=== PATIENT | female | born 1975 | race Caucasian/White ===

== ENCOUNTER 2020-06-23 14:33 | Emergency (ER) | payer OTHER, SELFPAY ==
[2020-06-23 14:42] VITALS: BP 132/83; PULSE 90; RESP 16; TEMP 37.6; O2SAT 98
--- NOTE | 2020-06-23 14:50 | ED.DENTAL ---
HPI - Dental/Oral General Chief complaint: Dental/Oral Stated complaint: Dental Time Seen by Provider: 06/23/20 14:50 Source: patient and RN notes reviewed History of Present Illness HPI Narrative: Patient is a 44-year-old female who presents the urgent care with complaints of right lower dental pain. Patient states is been ongoing for at least 1 month or longer and she has not been able to get into a dentist due to insurance purposes. Patient states she does have an appointment at the dental school in August but cannot last that long . Patient states that she has been using [id number] lidocaine to the gums as well as using Tylenol/ibuprofen. Patient states that she popped a bubble on the gumline and noticed some clear drainage. Patient denies of any fever, chills, nausea, vomiting. No facial swelling noted. No other acute complaints. No acute distress noted. Patient read the plan of care. Related Data Home Medications Medication Instructions Recorded Confirmed albuterol sulfate [ProAir HFA] 1 inh INHALATION QID 06/23/20 06/23/20 buspirone 10 mg PO TID 06/23/20 06/23/20 levetiracetam 500 mg PO BID 06/23/20 06/23/20 naltrexone 50 mg PO TID 06/23/20 06/23/20 pantoprazole 40 mg PO QAM 06/23/20 06/23/20 sertraline 100 mg PO DAILY 06/23/20 06/23/20 topiramate 50 mg PO BID 06/23/20 06/23/20 verapamil 40 mg PO DAILY 06/23/20 06/23/20 Allergies Allergy/AdvReac Type Severity Reaction Status Date / Time acetaminophen Allergy Unknown unknown Verified 06/23/20 14:53 erythromycin base Allergy Unknown unknown Verified 06/23/20 14:53 hydrocodone Allergy Unknown unknown Verified 06/23/20 14:53 Penicillins Allergy Unknown unknown Verified 06/23/20 14:53 prochlorperazine Allergy Unknown unknown Verified 06/23/20 14:53 propoxyphene Allergy Unknown unknown Verified 06/23/20 14:53 Review of Systems Review of Systems: Narrative: CONSTITUTIONAL: Denies fever, chills, or sweats. EYES: Denies visual changes, redness, or discharge. ENT: Denies rhinorrhea, congestion, sore throat, or otalgia. Reports of lower left dental pain CARDIOVASCULAR: Denies chest pain, palpitations, or edema. RESPIRATORY: Denies cough or dyspnea. GASTROINTESTINAL: Denies abdominal pain, nausea, vomiting, or diarrhea. GENITOURINARY: Denies dysuria or hematuria. SKIN: Denies rash or itching. MUSCULOSKELETAL: Denies back pain, joint pain, or myalgia. NEUROLOGIC: Denies headache, numbness, or weakness. All other systems reviewed are negative, except as documented in HPI. PMFSH Comments At the time of my signature, I reviewed and agree with the nursing past medical, surgical, social, and family history. There is no relevant family history pertinent to the patient complaint. Exam Const: Other: GENERAL: This is a well-nourished, well-developed patient, in no apparent distress. HEAD: normocephalic, atraumatic. EYES: PERRL. Sclera clear/white. Vision is grossly intact. EARS: External ears normal NOSE: External nose normal with no obvious nasal discharge, nares without redness, no rhinorrhea. THROAT: Mucous membranes moist, posterior pharynx clear. DENTAL: Poor dentition. No notable abscess to the lower right posterior gumline NECK: Neck supple, SKIN: warm, intact with no suspicious lesions or rash, good texture and turgor. NEURO: awake, alert, and oriented to person, place and time. There were no obvious focal neurologic abnormalities. EXTREMITIES: No clubbing, cyanosis, or edema. Course Vital Signs Vital signs: Vital Signs Temperature 99.7 F H 06/23/20 14:42 Pulse Rate 90 06/23/20 14:42 Respiratory Rate 16 06/23/20 14:42 Blood Pressure 132/83 06/23/20 14:42 Pulse Oximetry 98 06/23/20 14:42 Temperature 99.7 F H 06/23/20 14:42 Pulse Rate 90 06/23/20 14:42 Respiratory Rate 16 06/23/20 14:42 Blood Pressure 132/83 06/23/20 14:42 Pulse Oximetry 98 06/23/20 14:42 Reviewed MDM - Dental/Oral MDM Narrative Medical decision jerod
== END 2020-06-23 15:09 | disposition home or self-care (01) ==
PROVIDERS: Emergency Provider Nurse Practitioner Family; PCP Internal Medicine
DX: K02.9 Dental caries, unspecified (principal); K08.89 Other specified disorders of teeth and supporting structures; J45.909 Unspecified asthma, uncomplicated; K21.9 Gastro-esophageal reflux disease without esophagitis; F41.9 Anxiety disorder, unspecified
CPT/HCPCS: 99213; G0463

== ENCOUNTER 2020-08-31 12:16 | Emergency (ER) | payer OTHER, SELFPAY ==
[2020-08-31 12:24] VITALS: BP 135/88; PULSE 93; RESP 14; TEMP 37.2; O2SAT 100
[2020-08-31 12:41] VITALS: BP 135/88; PULSE 93; RESP 14; TEMP 37.2; O2SAT 100
--- NOTE | 2020-08-31 12:42 | ED.FEMALEGU ---
HPI - Female Genitourinary General Chief complaint: Urogenital-Female Stated complaint: uti Time Seen by Provider: 08/31/20 12:37 Source: patient and RN notes reviewed Mode of arrival: ambulatory Limitations: no limitations History of Present Illness HPI Narrative: 44-year-old female presents with concern for possible urinary tract infection. Reports history of urinary tract infections. Reports this morning around 3 AM she woke up with dysuria, pressure, frequency, urgency, low back pain. She denies nausea, vomiting, malaise, fever. MD elicited complaint: UTI Related Data Home Medications Medication Instructions Recorded Confirmed albuterol sulfate [ProAir HFA] 1 inh INHALATION QID 06/23/20 06/23/20 buspirone 10 mg PO TID 06/23/20 06/23/20 levetiracetam 500 mg PO BID 06/23/20 06/23/20 naltrexone 50 mg PO TID 06/23/20 06/23/20 pantoprazole 40 mg PO QAM 06/23/20 06/23/20 sertraline 100 mg PO DAILY 06/23/20 06/23/20 topiramate 50 mg PO BID 06/23/20 06/23/20 verapamil 40 mg PO DAILY 06/23/20 06/23/20 Allergies Allergy/AdvReac Type Severity Reaction Status Date / Time Penicillins Allergy Severe Anaphylaxis Verified 08/31/20 12:41 erythromycin base Allergy Intermediate Rash Verified 08/31/20 12:41 prochlorperazine Allergy Intermediate unknown Verified 08/31/20 12:41 acetaminophen Allergy Unknown unknown Verified 06/23/20 14:53 hydrocodone Allergy Unknown unknown Verified 08/31/20 12:41 propoxyphene Allergy Unknown unknown Verified 08/31/20 12:41 Review of Systems Review of Systems: Narrative: CONSTITUTIONAL: Denies malaise, chills, sweats, or fever. CARDIOVASCULAR: Denies chest pain, palpitations RESPIRATORY: Denies cough or dyspnea. GASTROINTESTINAL: Denies abdominal pain, nausea, vomiting, diarrhea. Reports suprapubic pressure GENITOURINARY: Reports dysuria, frequency, urgency. Denies hematuria. MUSCULOSKELETAL: Reports bilateral low back pain. Denies myalgia. NEUROLOGIC: Denies numbness, weakness All systems reviewed & are unremarkable except as noted in HPI and below PMFSH Comments At time of signature, agree with nursing past medical, surgical, social and family history. There is no relevant family history pertinent to the presenting complaint Exam Narrative: Exam Narrative: GENERAL: Well-appearing, well-nourished, and in no acute distress. HEAD: Normocephalic. EYES: PERRLA, conjunctivae clear. NECK: Supple. No lymphadenopathy CHEST: Clear to auscultation. No respiratory distress. HEART: Regular rate and rhythm. No murmur heard. Normal peripheral pulses. ABDOMEN: Soft, nontender upon palpation, nondistended, normal active bowel sounds, no palpable or pulsatile masses, no guarding. No CVA tenderness SKIN: Warm, dry, no rash. NEURO: Alert and oriented x3. PSYCH: Normal mood and affect Course Course Emergency Course: Patient is aware of diagnosis, understands and agrees to treatment plan. Anticipatory guidance given. Patient agrees to follow-up as directed and is aware of reasons to seek care at the emergency department. Portions of this record may have been created with voice recognition software Vital Signs Vital signs: Vital Signs Temperature 99.0 F 08/31/20 12:24 Pulse Rate 93 08/31/20 12:24 Respiratory Rate 14 08/31/20 12:24 Blood Pressure 135/88 08/31/20 12:24 Pulse Oximetry 100 08/31/20 12:24 Temperature 99.0 F 08/31/20 12:41 Pulse Rate 93 08/31/20 12:41 Respiratory Rate 14 08/31/20 12:41 Blood Pressure 135/88 08/31/20 12:41 Pulse Oximetry 100 08/31/20 12:41 Reviewed. MDM - Female Genitourinary MDM Narrative Medical decision making narrative: Exam findings and UA show no acute concerns or changes; patient is non-toxic appearing and is in no distress. Patient is appropriate for outpatient treatment and follow-up. Differential Diagnosis Differential diagnosis: Likely urinary tract infection, vaginitis and cystitis Critical Care Time Critical Care Time Crit
== END 2020-08-31 12:50 | disposition home or self-care (01) ==
PROVIDERS: Emergency Provider Nurse Practitioner; PCP Internal Medicine
DX: R30.0 Dysuria (principal); R35.0 Frequency of micturition; R39.15 Urgency of urination; M54.5 Low back pain; J45.909 Unspecified asthma, uncomplicated; K21.9 Gastro-esophageal reflux disease without esophagitis; F41.9 Anxiety disorder, unspecified; Z96.82 Presence of neurostimulator
CPT/HCPCS: 81003; 87086; 99213; G0463

== ENCOUNTER 2020-10-01 12:40 | Outpatient (CLI) | payer OTHER, SELFPAY ==
--- NOTE | ~2020-10-01 | MM_ITS ---
EXAMINATION: MM screening johan BI w [place] HISTORY: Screening mammogram, family history of breast cancer in her mother. TECHNIQUE: Craniocaudal and mediolateral oblique 3-D tomosynthesis images were obtained and synthetic 2-D images were generated. CAD analysis was submitted and interpreted. COMPARISON: No prior mammogram is available for comparison at this institution. BREAST PARENCHYMAL COMPOSITION: There are scattered areas of fibroglandular density. FINDINGS: RIGHT BREAST: Focal asymmetry is present in the middle third of the outer breast. LEFT BREAST: There is no evidence of suspicious mass, calcification, or architectural distortion to s uggest malignancy. IMPRESSION: 1. Right breast focal asymmetry which may represent the patient's baseline however no comparison is c urrently available. 2. Comparison with prior mammograms is necessary. BI-RADS Category 0: Incomplete: Needs comparison with prior mammograms. Reviewed, dictated and finalized at location A. L SUPPORT ASSISTANT IMPRESSION: 1. Right breast focal asymmetry which may represent the patient's baseline [place] no comparison is currently available. 2. Comparison with prior mammograms is necessary. BI-RADS Category 0: Incomplete: Needs comparison with prior mammograms.
--- NOTE | ~2020-10-01 | US_ITS ---
EXAMINATION: US pelvic complete w TV EXAM DATE: 10/01/2020 13:17 INDICATION: Pelvic and perineal pain. TECHNIQUE: Pelvic transabdominal and transvaginal sonogram was performed. There are multiple graysca le and Doppler images available for interpretation. There is no prior study for comparison. FINDINGS: Status post hysterectomy. The vaginal cuff is unremarkable. Right ovary was identified dandre uring 2.3 x 1.5 x 1.4 cm, morphologically normal. Left ovary not identified. No adnexal mass. IMPRESSION: Unremarkable right ovary. Reviewed, dictated and finalized at location A. SPECIALIST IMPRESSION: Unremarkable right ovary.
== END 2020-10-01 12:41 | disposition home or self-care (01) ==
PROVIDERS: PCP Internal Medicine; Visit Provider Obstetrics & Gynecology
DX: Z12.31 Encounter for screening mammogram for malignant neoplasm of breast (principal); R10.2 Pelvic and perineal pain; R92.8 Other abnormal and inconclusive findings on diagnostic imaging of breast
CPT/HCPCS: 76830; 76856; 77063; 77067

== ENCOUNTER 2020-10-29 11:17 | Outpatient (CLI) | payer OTHER, SELFPAY ==
--- NOTE | ~2020-10-29 | MMUS_ITS ---
EXAMINATION: MM diagnostic mammo unilat RT, US breast RT limited HISTORY: Focal asymmetry of the right breast on screening mammogram TECHNIQUE: Additional 3-D tomosynthesis images of the right breast were performed and synthetic 2-D i mages were generated. CAD analysis was submitted and interpreted. High resolution limited right breas t ultrasound was performed. COMPARISON: 10/01/2020, 05/15/2019 FINDINGS: MAMMOGRAPHIC FINDINGS: No persistent focal asymmetry is identified with spot compression views of the right breast. There is no suspicious calcification or architectural distortion. ULTRASOUND: No suspicious cystic or solid mass is identified. Small cysts in the upper outer quadrant of the [address] measuring up to 4 mm IMPRESSION: 1. No mammographic or sonographic evidence of malignancy. 2. Recommend routine screening mammography in one year. BI-RADS Category 2: Benign finding(s). Reviewed, dictated and finalized at location A. LE PROGRAMMER ANALYST IMPRESSION: 1. No mammographic or sonographic evidence of malignancy. 2. Recommend routine screening mammography in one year. BI-RADS Category 2: Benign finding(s).
== END 2020-10-29 11:18 | disposition home or self-care (01) ==
LOC: ANHIMG 11:18
PROVIDERS: PCP Internal Medicine; Visit Provider Obstetrics & Gynecology
DX: R92.8 Other abnormal and inconclusive findings on diagnostic imaging of breast (principal)
CPT/HCPCS: 76642; 77065

== ENCOUNTER 2022-11-13 11:48 | Emergency (ER) | payer OTHER, SELFPAY ==
--- NOTE | 2022-11-13 11:50 | ED.URI ---
HPI - URI/Sore Throat General Chief Complaint: Upper Respiratory Infection Stated Complaint: Cough Time Seen by Provider: 11/13/22 11:49 Source: patient Mode of arrival: ambulatory Limitations: no limitations History of Present Illness HPI Narrative: Yonathan is a 46-year-old female patient presenting to the clinic today with complaints of a cough, chest congestion, wheezing, and shortness of breath. She reports she has had the symptoms for approximately 1 week. She reports she is bringing up yellow brown phlegm when coughing. History of asthma. Denies any fever but has had some hot flashes. She is a current smoker. MD elicited complaint: cough, rhinorrhea, nasal congestion and other ( Chest congestion, shortness of breath) Related Data Home Medications Medication Instructions Recorded Confirmed buspirone 10 mg tablet 10 mg PO TID 06/23/20 11/13/22 levetiracetam 500 mg tablet 500 mg PO BID 06/23/20 11/13/22 pantoprazole 40 mg tablet,delayed 40 mg PO QAM 06/23/20 11/13/22 release sertraline 100 mg tablet 100 mg PO DAILY 06/23/20 11/13/22 topiramate 50 mg tablet 50 mg PO BID 06/23/20 11/13/22 verapamil 40 mg tablet 40 mg PO DAILY 06/23/20 11/13/22 acetaminophen 500 mg tablet 500 mg PO Q6H PRN Pain 09/04/20 11/13/22 (Tylenol Extra Strength) albuterol sulfate 90 mcg/actuation 1 inh inhalation Q4H 09/04/20 11/13/22 aerosol inhaler amitriptyline 25 mg tablet 25 mg PO ONCE 09/04/20 11/13/22 baclofen 10 mg tablet 10 mg PO DAILY 09/04/20 11/13/22 cyanocobalamin (vitamin B-12) 500 500 mcg PO DAILY 09/04/20 11/13/22 mcg tablet (Vitamin B-12) epinephrine 0.1 mg/0.1 mL See Rx Instructions .Route .COMPLEX 09/04/20 injection, auto-injector famotidine 40 mg tablet 40 mg PO DAILY 09/04/20 11/13/22 fluticasone propionate 50 1 spray intranasal DAILY 09/04/20 11/13/22 mcg/actuation nasal spray,suspension (Allergy Relief (fluticasone)) multivitamin 1 cap PO DAILY 09/04/20 11/13/22 naltrexone 50 mg tablet See Rx Instructions .Route .COMPLEX 11/13/22 11/13/22 Allergies Allergy/AdvReac Type Severity Reaction Status Date / Time Penicillins Allergy Severe Anaphylaxis Verified 11/13/22 12:03 erythromycin base Allergy Intermediate Palpitations, Verified 11/13/22 12:03 chest pain hydrocodone Allergy Unknown Rash, Verified 11/13/22 12:03 Itching acetaminophen Allergy Rash, Verified 11/13/22 12:03 [From Darvocet-N] Itching propoxyphene Allergy Rash, Verified 11/13/22 12:03 [From Darvocet-N] Itching prochlorperazine AdvReac Loss of Verified 11/13/22 12:03 [From Compazine] muscle control Review of Systems Review of Systems: Pertinent positives per HPI. Patient denies any fever, chills, rash, headache, visual changes, dizziness, runny nose, sore throat, chest pain, palpitations, nausea, vomiting, diarrhea, constipation, abdominal pain, or any urinary issues. [facility] Past Medical History Medical History Acid reflux Anxiety Depression Migraines Missed 2000 Vaginal delivery 12-27-96, , pre term 33.5w, male, 6#2, labor 07-16-99, , pre term 32w, female, 5#9, labor Surgical History Surgical History History of bilateral tubal ligation 1999 History of cholecystectomy 2010 History of hysterectomy 2015 History of knee surgery 1990, left knee 1991, right knee History of salpingectomy 2015 History of tonsillectomy and adenoidectomy 1986 [place] teeth extracted Family History Family History Mother Breast cancer Diabetes mellitus Acute myocardial infarction Hypertension Cerebrovascular accident Father Hypertension Hypercholesteremia Social History Social History Years smoked: 29 Smoking status: C
[2022-11-13 11:55] VITALS: BP 127/87; PULSE 104; RESP 16; TEMP 37; O2SAT 98
== END 2022-11-13 12:10 | disposition home or self-care (01) ==
PROVIDERS: Emergency Provider Nurse Practitioner Family; PCP Internal Medicine
DX: J40 Bronchitis, not specified as acute or chronic (principal); F17.210 Nicotine dependence, cigarettes, uncomplicated; K21.9 Gastro-esophageal reflux disease without esophagitis; F41.9 Anxiety disorder, unspecified; F32.A Depression, unspecified
CPT/HCPCS: 99213; G0463

== ENCOUNTER 2022-12-30 12:49 | Emergency (ER) | payer OTHER, SELFPAY ==
[2022-12-30 12:55] VITALS: BP 133/84; PULSE 110; RESP 16; TEMP 36.9; O2SAT 99
--- NOTE | 2022-12-30 13:01 | ED.URI ---
HPI - URI/Sore Throat General Chief Complaint: Upper Respiratory Infection Stated Complaint: sinus/chest infection Time Seen by Provider: 12/30/22 13:01 Source: patient and RN notes reviewed History of Present Illness HPI Narrative: Patient is a 47-year-old female presents to urgent care with complaints of sinus pressure, congestion with cough, drainage and headache. Patient states that she has been taking Mucinex, DayQuil, NyQuil and using her inhalers. Patient states that she has chronic recurrent bronchitis. She states that she did stop smoking 1 year ago. Patient denies any chest pain. No other acute complaints. No acute distress noted. Patient aware plan of care. Some parts of this dictation were generated by voice recognition software and may contain typographical and/or grammatical inaccuracies. Related Data Home Medications Medication Instructions Recorded Confirmed buspirone 10 mg tablet 10 mg PO TID 06/23/20 12/30/22 levetiracetam 500 mg tablet 500 mg PO BID 06/23/20 12/30/22 pantoprazole 40 mg tablet,delayed 40 mg PO QAM 06/23/20 12/30/22 release sertraline 100 mg tablet 100 mg PO DAILY 06/23/20 12/30/22 topiramate 50 mg tablet 50 mg PO BID 06/23/20 12/30/22 verapamil 40 mg tablet 40 mg PO DAILY 06/23/20 12/30/22 acetaminophen 500 mg tablet 500 mg PO Q6H PRN Pain 09/04/20 12/30/22 (Tylenol Extra Strength) albuterol sulfate 90 mcg/actuation 1 inh inhalation Q4H 09/04/20 12/30/22 aerosol inhaler amitriptyline 25 mg tablet 25 mg PO ONCE 09/04/20 12/30/22 baclofen 10 mg tablet 10 mg PO DAILY 09/04/20 12/30/22 cyanocobalamin (vitamin B-12) 500 500 mcg PO DAILY 09/04/20 12/30/22 mcg tablet (Vitamin B-12) epinephrine 0.1 mg/0.1 mL See Rx Instructions .Route .COMPLEX 09/04/20 12/30/22 injection, auto-injector famotidine 40 mg tablet 40 mg PO DAILY 09/04/20 12/30/22 naltrexone 50 mg tablet See Rx Instructions .Route .COMPLEX 11/13/22 12/30/22 Allergies Allergy/AdvReac Type Severity Reaction Status Date / Time Penicillins Allergy Severe Anaphylaxis Verified 12/30/22 13:04 erythromycin base Allergy Intermediate Palpitations, Verified 12/30/22 13:04 chest pain propoxyphene Allergy Mild Rash, Verified 12/30/22 13:04 [From Darvocet-N] Itching hydrocodone Allergy Unknown Rash, Verified 12/30/22 13:04 Itching prochlorperazine AdvReac Intermediate Loss of Verified 12/30/22 13:04 [From Compazine] muscle control Review of Systems Review of Systems: CONSTITUTIONAL: Denies fever, chills, or sweats. EYES: Denies visual changes, redness, or discharge. ENT: Reports of sinus congestion/pressure, postnasal drainage and rhinorrhea CARDIOVASCULAR: Denies chest pain, palpitations, or edema. RESPIRATORY: Reports of cough, intermittent dyspnea GASTROINTESTINAL: Denies abdominal pain, nausea, vomiting, or diarrhea. GENITOURINARY: Denies dysuria or hematuria. SKIN: Denies rash or itching. MUSCULOSKELETAL: Denies back pain, joint pain, or myalgia. NEUROLOGIC: Denies headache, numbness, or weakness. All other systems reviewed are negative, except as documented in HPI. [facility] Past Medical History Medical History Acid reflux Anxiety Depression Migraines Missed 2000 Vaginal delivery 12-27-96, , pre term 33.5w, male, 6#2, labor 07-16-99, , pre term 32w, female, 5#9, labor Surgical History Surgical History History of bilateral tubal ligation 1999 History of cholecystectomy 2010 History of hysterectomy 2015 History of knee surgery 1990, left knee 1991, right knee History of salpingectomy 2015 History of tonsillectomy and adenoidectomy 1987 [place] teeth extracted Family History Family History Mother Breast cancer Diabetes mellitus Acute myocardial infarction Hypert
== END 2022-12-30 13:28 | disposition home or self-care (01) ==
PROVIDERS: Emergency Provider Nurse Practitioner Family; PCP Internal Medicine
DX: J40 Bronchitis, not specified as acute or chronic (principal); F17.210 Nicotine dependence, cigarettes, uncomplicated; K21.9 Gastro-esophageal reflux disease without esophagitis; F41.9 Anxiety disorder, unspecified; F32.A Depression, unspecified
CPT/HCPCS: 99213; G0463

== ENCOUNTER 2023-01-19 17:58 | Emergency (ER) | payer OTHER, SELFPAY ==
[2023-01-19 18:05] VITALS: BP 140/84; PULSE 87; RESP 20; TEMP 36.9; O2SAT 96
--- NOTE | 2023-01-19 18:59 | ED.GENADULT ---
HPI - General Adult General Chief complaint: Urogenital-Female Stated complaint: Poss UTI Source: patient and RN notes reviewed History of Present Illness HPI narrative: [age] year female presents to urgent care with complaints dysuria, urinary frequency, mid pelvic pressure, and bilateral lower back pain. Patient states the urinary symptoms started within the last 24 hours but the lower back pain starting this past weekend. Patient states she feels like she has UTI. Denies any fevers, chills, vomiting. Patient states she has an appointment with her primary care physician on . Related Data Home Medications Medication Instructions Recorded Confirmed buspirone 10 mg tablet 10 mg PO TID 06/23/20 12/30/22 levetiracetam 500 mg tablet 500 mg PO BID 06/23/20 12/30/22 pantoprazole 40 mg tablet,delayed 40 mg PO QAM 06/23/20 12/30/22 release sertraline 100 mg tablet 100 mg PO DAILY 06/23/20 12/30/22 topiramate 50 mg tablet 50 mg PO BID 06/23/20 12/30/22 verapamil 40 mg tablet 40 mg PO DAILY 06/23/20 12/30/22 acetaminophen 500 mg tablet 500 mg PO Q6H PRN Pain 09/04/20 12/30/22 (Tylenol Extra Strength) albuterol sulfate 90 mcg/actuation 1 inh inhalation Q4H 09/04/20 12/30/22 aerosol inhaler amitriptyline 25 mg tablet 25 mg PO ONCE 09/04/20 12/30/22 baclofen 10 mg tablet 10 mg PO DAILY 09/04/20 12/30/22 cyanocobalamin (vitamin B-12) 500 500 mcg PO DAILY 09/04/20 12/30/22 mcg tablet (Vitamin B-12) epinephrine 0.1 mg/0.1 mL See Rx Instructions .Route .COMPLEX 09/04/20 12/30/22 injection, auto-injector famotidine 40 mg tablet 40 mg PO DAILY 09/04/20 12/30/22 naltrexone 50 mg tablet See Rx Instructions .Route .COMPLEX 11/13/22 12/30/22 Allergies Allergy/AdvReac Type Severity Reaction Status Date / Time Penicillins Allergy Severe Anaphylaxis Verified 12/30/22 13:04 erythromycin base Allergy Intermediate Palpitations, Verified 12/30/22 13:04 chest pain propoxyphene Allergy Mild Rash, Verified 12/30/22 13:04 [From Darvocet-N] Itching hydrocodone Allergy Unknown Rash, Verified 12/30/22 13:04 Itching prochlorperazine AdvReac Intermediate Loss of Verified 12/30/22 13:04 [From Compazine] muscle control Review of Systems Review of Systems: CONSTITUTIONAL: Denies fever, chills, or sweats. EYES: Denies visual changes, redness, or discharge. ENT: Denies otalgia and sore throat CARDIOVASCULAR: Denies chest pain, palpitations, or edema. RESPIRATORY: Denies cough or dyspnea. GASTROINTESTINAL: Mid lower abdominal pain/pressure GENITOURINARY: Reports dysuria, urinary frequency SKIN: Denies rash or itching. MUSCULOSKELETAL: Denies back pain, joint pain, or myalgia. NEUROLOGIC: Denies headache, numbness, or weakness. [facility] Past Medical History Medical History Acid reflux Anxiety Depression Migraines Missed 2000 Vaginal delivery 12-27-96, , pre term 33.5w, male, 6#2, labor 07-16-99, , pre term 32w, female, 5#9, labor Surgical History Surgical History History of bilateral tubal ligation 1999 History of cholecystectomy 2010 History of hysterectomy 2014 History of knee surgery 1990, left knee 1991, right knee History of salpingectomy 2014 History of tonsillectomy and adenoidectomy 1987 [place] teeth extracted Family History Family History Mother Breast cancer Diabetes mellitus Acute myocardial infarction Hypertension Cerebrovascular accident Father Hypertension Hypercholesteremia Social History Social History Years smoked: 29 Smoking status: Current every day smoker Tobacco type: cigarettes Alcohol intake: never Substance use: never Gender identity (if verbalized by the patient)
== END 2023-01-19 19:17 | disposition home or self-care (01) ==
PROVIDERS: Emergency Provider Nurse Practitioner Family; PCP Internal Medicine
DX: N39.0 Urinary tract infection, site not specified (principal); F41.9 Anxiety disorder, unspecified; F32.A Depression, unspecified; F17.210 Nicotine dependence, cigarettes, uncomplicated
CPT/HCPCS: 81003; 87086; 99213; G0463

== ENCOUNTER 2023-02-22 14:33 | Outpatient (CLI) | payer OTHER, SELFPAY ==
--- NOTE | ~2023-02-22 | MM_ITS ---
EXAMINATION: MM screening johan BI w [place] HISTORY: Screening mammogram TECHNIQUE: Craniocaudal and mediolateral oblique 3-D tomosynthesis images were obtained and synthetic 2-D images were generated. CAD analysis was submitted and interpreted. COMPARISON: 10/29/2020 diagnostic right mammogram and limited right breast ultrasound examination 10/01/2020 bilateral screening mammogram BREAST PARENCHYMAL COMPOSITION: There are scattered areas of fibroglandular density. FINDINGS: There is no evidence of suspicious mass, calcification, or architectural distortion to sugg est malignancy in either breast. There has been no suspicious interval change. IMPRESSION: 1. No mammographic evidence of malignancy. 2. Recommend routine screening mammography in one year. BI-RADS Category 1: Negative Reviewed, dictated and finalized at location A.
== END 2023-02-22 14:34 | disposition home or self-care (01) ==
LOC: ANHIMG 14:35
PROVIDERS: PCP Internal Medicine; Visit Provider Internal Medicine
DX: Z12.31 Encounter for screening mammogram for malignant neoplasm of breast (principal)
CPT/HCPCS: 77063; 77067

== ENCOUNTER 2023-10-14 09:39 | Emergency (ER) | payer OTHER, SELFPAY ==
[2023-10-14 10:00] VITALS: BP 127/90; PULSE 72; RESP 16; TEMP 37.4; O2SAT 97
--- NOTE | 2023-10-14 10:30 | ED.EYEPROB ---
HPI - Eye Problem General Chief complaint: Eye Problems Stated complaint: Eye Problem Time Seen by Provider: 10/14/23 10:30 Source: patient, RN notes reviewed and old records reviewed Mode of arrival: ambulatory Limitations: no limitations History of Present Illness HPI Narrative: 47 year old female who presents to [facility] care with complaints of pink eye to her left eye with itching starting around Thanksgiving. Patient reports that her grandson had pink eye 2 weeks ago and she also got some Ofloxacin eye drops but she states that her left eye continues to be matted shut in the morning despite use of the Ofloxacin eye drop as ordered. Patient reports no visual changes, continues to have redness, itching and yellow drainage from her left eye. MD chief complaint: eye redness and other (drainage from left eye,) Onset (ago): day(s) (7-8 days) Eye Symptoms: burning, redness, itching and discharge Severity scale (1-10): 2 Treatments Prior to Arrival: other (warm compresses, Ofloxacin eye drops) Related Data Home Medications Medication Instructions Recorded Confirmed buspirone 10 mg tablet 10 mg PO TID 06/23/20 10/14/23 levetiracetam 500 mg tablet 500 mg PO BID 06/23/20 10/14/23 pantoprazole 40 mg tablet,delayed 40 mg PO QAM 06/23/20 10/14/23 release sertraline 100 mg tablet 100 mg PO DAILY 06/23/20 10/14/23 topiramate 50 mg tablet 50 mg PO BID 06/23/20 10/14/23 verapamil 40 mg tablet 40 mg PO DAILY 06/23/20 10/14/23 acetaminophen 500 mg tablet 500 mg PO Q6H PRN Pain 09/04/20 10/14/23 (Tylenol Extra Strength) albuterol sulfate 90 mcg/actuation 1 inh inhalation Q4H 09/04/20 10/14/23 aerosol inhaler amitriptyline 25 mg tablet 25 mg PO ONCE 09/04/20 10/14/23 baclofen 10 mg tablet 10 mg PO DAILY 09/04/20 10/14/23 cyanocobalamin (vitamin B-12) 500 500 mcg PO DAILY 09/04/20 10/14/23 mcg tablet (Vitamin B-12) epinephrine 0.1 mg/0.1 mL See Rx Instructions .Route .COMPLEX 09/04/20 10/14/23 injection, auto-injector famotidine 40 mg tablet 40 mg PO DAILY 09/04/20 10/14/23 naltrexone 50 mg tablet See Rx Instructions .Route .COMPLEX 11/13/22 10/14/23 budesonide-formoterol HFA 80 1 inh inhalation TID 08/17/23 10/14/23 mcg-4.5 mcg/actuation aerosol inhaler (Symbicort) cetirizine 10 mg tablet 10 mg PO DAILY PRN Pain 08/17/23 10/14/23 duloxetine 30 mg capsule,delayed 30 mg PO DAILY 08/17/23 10/14/23 release lubiprostone 24 mcg capsule 24 mcg PO DAILY 08/17/23 10/14/23 (Amitiza) montelukast 10 mg tablet 10 mg PO DAILY 08/17/23 10/14/23 nortriptyline 25 mg capsule 25 mg PO DAILY 08/17/23 10/14/23 Allergies Allergy/AdvReac Type Severity Reaction Status Date / Time Penicillins Allergy Severe Anaphylaxis Verified 08/17/23 10:15 erythromycin base Allergy Intermediate Palpitations, Verified 08/17/23 10:15 chest pain propoxyphene Allergy Mild Rash, Verified 08/17/23 10:15 [From Darvocet-N] Itching hydrocodone Allergy Unknown Rash, Verified 08/17/23 10:15 Itching prochlorperazine AdvReac Intermediate Loss of Verified 08/17/23 10:15 [From Compazine] muscle control Review of Systems Review of Systems: CONSTITUTIONAL: Denies fever, chills, or sweats. EYES: Denies visual changes. Reports redness,, irritation, discharge to left eye yellow/green drainage ENT: Denies rhinorrhea, congestion, sore throat, or otalgia. CARDIOVASCULAR: Denies chest pain, palpitations, or edema. RESPIRATORY: Denies cough or dyspnea. SKIN: Denies rash or itching. NEUROLOGIC: Denies headache All systems reviewed & are unremarkable except as noted in HPI and below PMFSH Past Medical History Medical History (Updated 10/15/23 @ 12:40 by Iraida Bone NP) Acid reflux Anxiety Complex regional pain syndrome Depression Migraines Missed 2000 Vaginal delivery 12-27-96, , pre term 33.5w, male, 6#2, labor 07-16-99, , pre term 32w, female, 5#9, labor Surgical History Surgical History (Updated 1
== END 2023-10-14 10:51 | disposition home or self-care (01) ==
PROVIDERS: Emergency Provider Registered Nurse; PCP Internal Medicine
DX: H10.32 Unspecified acute conjunctivitis, left eye (principal); Z87.891 Personal history of nicotine dependence; K21.9 Gastro-esophageal reflux disease without esophagitis; F41.9 Anxiety disorder, unspecified; F32.A Depression, unspecified
CPT/HCPCS: 99213; G0463

== ENCOUNTER 2024-07-11 09:18 | Outpatient (CLI) | payer OTHER, SELFPAY ==
--- NOTE | ~2024-07-11 | MM_ITS ---
EXAMINATION: MM screening johan BI w alden HISTORY: Screening TECHNIQUE: Craniocaudal and mediolateral oblique 3-D tomosynthesis images were obtained and synthetic 2-D images were generated. CAD analysis was submitted and interpreted. COMPARISON: Comparison to multiple prior studies sequentially, with oldest reviewed study dated 11/2018. BREAST PARENCHYMAL COMPOSITION: Dense: The breasts are heterogeneously dense, which may obscure small masses FINDINGS: The left breast is stable without evidence for malignancy. There are developing asymmetries medially and laterally in the right breast on CC view. Possible architectural distortion superiorly on the right breast on MLO view. IMPRESSION: 1. Developing right breast asymmetries with possible architectural distortion. 2. Additional mammographic views and possible breast ultrasound are recommended. BI-RADS Category 0: Incomplete: Needs additional imaging evaluation. Reviewed, dictated and finalized at location B. IMPRESSION: 1. Developing right breast asymmetries with possible architectural distortion. 2. Additional mammographic views and possible breast ultrasound are recommended . BI-RADS Category 0: Incomplete: Needs additional imaging evaluation.
== END 2024-07-11 09:19 | disposition home or self-care (01) ==
LOC: ANHIMG 09:21
PROVIDERS: PCP Internal Medicine; Visit Provider Obstetrics & Gynecology
DX: Z12.31 Encounter for screening mammogram for malignant neoplasm of breast (principal); R92.8 Other abnormal and inconclusive findings on diagnostic imaging of breast
CPT/HCPCS: 76641; 77063; 77067

== ENCOUNTER 2024-07-12 13:15 | Outpatient (CLI) | payer OTHER, SELFPAY ==
--- NOTE | ~2024-07-12 | MM_ITS ---
EXAMINATION: MM diagnostic johan RT w alden, US breast RT complete HISTORY: Follow-up right breast asymmetries TECHNIQUE: Additional 3-D tomosynthesis images of the right breast were performed and synthetic 2-D i mages were generated. CAD analysis was submitted and interpreted. High resolution complete right mihai st ultrasound was performed. COMPARISON: Comparison to multiple prior studies sequentially, with oldest reviewed study dated 11/2018. BREAST PARENCHYMAL COMPOSITION: Dense: The breasts are heterogeneously dense, which may obscure small masses FINDINGS: MAMMOGRAPHIC FINDINGS: There are no suspicious masses, calcifications or architectural distortion in the right breast to sug gest malignancy. Right breast asymmetries are less apparent with spot compression views. ULTRASOUND: Complete US of all 4 quadrants of the breast/s and retroareolar region was reviewed. Normal heterogen eous echotexture without focal solid or cystic mass. IMPRESSION: 1. No evidence for malignancy in the right breast. 2. Routine yearly screening mammogram and regular clinical breast examination are recommended. BI-RADS Category 1: Negative Reviewed, dictated and finalized at location B. IMPRESSION: 1. No evidence for malignancy in the right breast. 2. Routine yearly screening mammogram and regular clinical breast examination a re recommended. BI-RADS Category 1: Negative
== END 2024-07-12 13:16 | disposition home or self-care (01) ==
LOC: ANHIMG 13:18
PROVIDERS: PCP Internal Medicine; Visit Provider Obstetrics & Gynecology
DX: R92.8 Other abnormal and inconclusive findings on diagnostic imaging of breast (principal)
CPT/HCPCS: 76641; 77061; 77065; G0279

== ENCOUNTER 2024-11-03 11:12 | Emergency (ER) | payer OTHER, SELFPAY ==
[2024-11-03 11:16] VITALS: BP 130/76; PULSE 56; RESP 18; TEMP 37.3; O2SAT 99
--- NOTE | 2024-11-03 11:17 | ED_ITS ---
HPI - General Adult General Chief complaint: Wound/Laceration Stated complaint: cat bite left hand Time Seen by Provider: 11/03/24 11:20 Source: patient, RN notes reviewed and old records reviewed Mode of arrival: ambulatory Limitations: no limitations History of Present Illness HPI narrative: 48-year-old female presents to the [facility] with complaints of a cat bite to her left hand that occurred 3 times over the last week. dorsal aspect left hand between metacarpals 1 and 2 tDap 12/22/2019 Related Data Home Medications ?Medication ?Instructions ?Recorded ?Confirmed ?Last Taken ?Type buspirone 10 mg tablet 10 mg PO TID 06/23/20 11/03/24 Unknown History levetiracetam 500 mg tablet 500 mg PO BID 06/23/20 11/03/24 Unknown History topiramate 50 mg tablet 50 mg PO BID 06/23/20 11/03/24 Unknown History acetaminophen 500 mg tablet 500 mg PO Q6H PRN Pain 09/04/20 11/03/24 Unknown History (Tylenol Extra Strength) albuterol sulfate 90 mcg/actuation 1 inh inhalation Q4H 09/04/20 11/03/24 Unknown History aerosol inhaler baclofen 10 mg tablet 10 mg PO DAILY 09/04/20 11/03/24 Unknown History cyanocobalamin (vitamin B-12) 500 500 mcg PO DAILY 09/04/20 11/03/24 Unknown History mcg tablet (Vitamin B-12) epinephrine 0.1 mg/0.1 mL See Rx Instructions .Route .COMPLEX 09/04/20 11/03/24 Unknown History injection, auto-injector famotidine 40 mg tablet 40 mg PO DAILY 09/04/20 11/03/24 Unknown History naltrexone 50 mg tablet See Rx Instructions .Route .COMPLEX 11/13/22 11/03/24 Unknown History budesonide-formoterol HFA 80 1 inh inhalation TID 08/17/23 11/03/24 Unknown History mcg-4.5 mcg/actuation aerosol inhaler (Symbicort) cetirizine 10 mg tablet 10 mg PO DAILY PRN Pain 08/17/23 11/03/24 Unknown History duloxetine 30 mg capsule,delayed 30 mg PO DAILY 08/17/23 11/03/24 Unknown History release lubiprostone 24 mcg capsule 24 mcg PO DAILY 08/17/23 11/03/24 Unknown History (Amitiza) montelukast 10 mg tablet 10 mg PO DAILY 08/17/23 11/03/24 Unknown History nortriptyline 25 mg capsule 25 mg PO DAILY 08/17/23 11/03/24 Unknown History hydroxyzine HCl 25 mg tablet mg 11/03/24 Unknown History omeprazole 40 mg capsule,delayed mg 11/03/24 Unknown History release prucalopride 2 mg tablet mg 11/03/24 Unknown History (Motegrity) Allergies Allergy/AdvReac Type Severity Reaction Status Date / Time Penicillins Allergy Severe Anaphylaxis Verified 11/03/24 11:17 erythromycin base Allergy Intermediate Palpitations, Verified 11/03/24 11:17 chest pain propoxyphene (From Allergy Mild Rash, Verified 11/03/24 11:17 Darvocet-N) Itching hydrocodone Allergy Unknown Rash, Verified 11/03/24 11:17 Itching prochlorperazine (From AdvReac Intermediate Loss of Verified 11/03/24 11:17 Compazine) muscle control Review of Systems Review of Systems: All systems reviewed & are unremarkable except as noted in HPI and below Constitutional: Constitutional: Reports no additional constitutional complaints ENT: Reports system reviewed and no additional complaints, except as documented Cardiovascular: Cardiovascular: Reports no additional cardiovascular complaints, Denies chest pain and Denies dyspnea Respiratory: Respiratory: Reports no additional respiratory complaints, Denies chest congestion, Denies cough and Denies dyspnea Musculoskeletal: Musculoskeletal: Reports no additional musculoskeletal complaints Integumentary/Breasts: Skin/Breast: Reports as per HPI and Reports wounds [facility] Past Medical History Medical History Hiatal hernia Complex regional pain syndrome Missed 2000 Vaginal delivery 12-27-96, , pre term 33.5w, male, 6#2, labor 07-16-99, , pre term 32w, female, 5#9, labor Migraines Anxiety Depression Acid reflux Surgical History Surgical History History of fundoplication Status post insertion of spinal cord stimulator History of knee surgery 1990, left knee 1991, right knee History of tonsillectomy and adenoidectomy 1986 History of cholecystectomy 2011 [employer] teeth extracted History of hysterectomy 2014 History of salpingectomy 2014 History of bilateral tubal ligation 1999 Family History Family History Mother Breast cancer Diabetes mellitus Acute myocardial infarction Hypertension Cerebrovascular accident Father Hypertension Hypercholesteremia Social History Social History Years smoked: 29 Smoking status: Former smoker Tobacco type: cigarettes Alcohol intake: never Substance use: never Lack of Transportation: No Lack of Food: Never True Current Housing: I Have Housing Concerned About Future Housing: No Difficulty Paying Gas/Electric Bills: No Difficulty Paying for Meds: No Currently Unemployed: No Education: Trade/Vocational Certificate Living arrangements: with family Gender identity (if verbalized by the patient): Female Comments At the time of my signature, I reviewed and agree with the nursing past medical, surgical, social, and family history. There is no relevant family history pertinent to the patient complaint. Exam Const: General: cooperative, healthy appearing, comfortable, no acute distress , well developed, alert and well nourished Nutritional Appearance: well nourished Orientation/consciousness: patient oriented x3 Limitations: no limitations HENMT: Head: normal to inspection Face and sinus: normal facial exam and face symmetric Eyes: General: appearance normal, both eyes and all related structures Neck: Neck: normal visual inspection, full ROM, no lymphadenopathy and no meningeal signs Chest: Chest palpation & inspection: normal inspection of the chest Resp: Effort & Inspection: normal respiratory effort and able to speak in complete sentences Cardio: Rate: regular rate Skin: General skin exam: normal color Lesions: lesion noted Other: 1.5 x 1.5 dorsal left hand between metac arpals 1 and 2 red, raised area. Patient reports blistery area, popped this morning. Neuro: General: patient oriented x3, gait normal, moves all extremities and no meningeal signs Cognition (Neuro): normal cognition Speech: normal speech Gait exam (Neuro): Normal gait present Extrem: General: normal to inspection, full ROM, capillary refill normal and normal gait Psych: Appearance: grossly normal and well kempt Mental Status: mental status grossly normal Speech and movement: Normal speech and movement present and Clear speech present Affect: normal affect Attitude: cooperative Course Course Level of Care: Express Care Visit Vital Signs Vital signs: Vital Signs Temperature 99.1 F 11/03/24 11:16 Pulse Rate 56 L 11/03/24 11:16 Respiratory Rate 18 11/03/24 11:16 Blood Pressure 130/76 11/03/24 11:16 Pulse Oximetry 99 11/03/24 11:16 Oxygen Delivery Room Air 11/03/24 11:16 Temperature 99.1 F 11/03/24 11:16 Pulse Rate 56 L 11/03/24 11:16 Respiratory Rate 18 11/03/24 11:16 Blood Pressure 130/76 11/03/24 11:16 Pulse Oximetry 99 11/03/24 11:16 Oxygen Delivery Room Air 11/03/24 11:16 Reviewed Medical Decision Making MDM Narrative Medical decision making narrative: Patient sitting comfortably in exam room. Nontoxic, vitals stable. Patient in no acute distress Patient presents for cat bite, irritation inflammation, concern for infection to her hand after a cat bite Patient is appropriate for outpatient treatment and follow-up Discharge instructions reviewed with patient, as well as provided in writing per nursing staff. The instructions also include specific and strict return/GO TO THE ER as well as f/u information. All questions have been answered, and the patient deny any further questions with discharge and discharge plan. Some parts of this dictation were generated by voice recognition software and may contain typographical and/or grammatical inaccuracies. Differential Diagnosis Differential Diagnosis: Cellulitis, abscess Medical Records Medical records reviewed: Yes I reviewed the external patient's medical records. Vital Signs Vital Signs: Vital Signs Temperature 99.1 F 11/03/24 11:16 Pulse Rate 56 L 11/03/24 11:16 Respiratory Rate 18 11/03/24 11:16 Blood Pressure 130/76 11/03/24 11:16 Pulse Oximetry 99 11/03/24 11:16 Oxygen Delivery Room Air 11/03/24 11:16 Temperature 99.1 F 11/03/24 11:16 Pulse Rate 56 L 11/03/24 11:16 Respiratory Rate 18 11/03/24 11:16 Blood Pressure 130/76 11/03/24 11:16 Pulse Oximetry 99 11/03/24 11:16 Oxygen Delivery Room Air 11/03/24 11:16 Reviewed Lab Data Lab results reviewed: Yes I reviewed the patient's lab results. Labs: Reviewed Critical Care Time Critical Care Time Critical Care Time: No Discharge Plan Discharge Clinical Impression: Cat bite of hand Qualifiers: Encounter type: initial encounter Laterality: left Qualified Code(s): S61.452A - Open bite of left hand, initial encounter Patient Disposition: Home, Self-Care Condition: Stable Instructions: Antibiotic Form, Animal Bite (ED) Additional Instructions: Wash area 2-3 times daily, pat dry and apply Bactroban Take antibiotic as prescribed While on antibiotics please take a probiotic or eat a yogurt a day to reduce some side effects. Follow-up with primary care provider in 1-2 weeks For new or worsening symptoms go directly to emergency room Patient Language: Samoan Prescriptions: New clindamycin HCl 300 mg capsule 300 mg PO TID 7 Days Qty: 21 0RF Rx Instructions: TAKE WITH 150 MG doxycycline monohydrate 100 mg tablet 100 mg PO BID Qty: 14 0RF No Action naltrexone 50 mg tablet See Rx Instructions .ROUTE .COMPLEX Rx Instructions: PRESCRIBED polymyxin B sulf-trimethoprim 10,000 unit- 1 mg/mL drops 1 drp LEFT EYE Q3H 10 Days Qty: 10 0RF Rx Instructions: while awake; do not exceed 6 doses in 24 hours omeprazole 40 mg capsule,delayed release(DR/EC) hydroxyzine HCl 25 mg tablet Motegrity 2 mg tablet buspirone 10 mg Tablet 10 mg PO TID topiramate 50 mg Tablet 50 mg PO BID levetiracetam 500 mg Tablet 500 mg PO BID phenazopyridine [Pyridium] 200 mg tablet 200 mg PO TID PRN (Reason: pain) Qty: 14 0RF lubiprostone [Amitiza] 24 mcg capsule 24 mcg PO DAILY montelukast 10 mg tablet 10 mg PO DAILY nortriptyline 25 mg capsule 25 mg PO DAILY cetirizine 10 mg tablet 10 mg PO DAILY PRN (Reason: Pain) budesonide-formoterol [Symbicort] 80-4.5 mcg/actuation HFA aerosol inhaler 1 inh inhalation TID duloxetine 30 mg capsule,delayed release(DR/EC) 30 mg PO DAILY albuterol sulfate 90 mcg/actuation HFA aerosol inhaler 1 inh inhalation Q4H cyanocobalamin (vitamin B-12) [Vitamin B-12] 500 mcg tablet 500 mcg PO DAILY epinephrine 0.1 mg/0.1 mL auto-injector See Rx Instructions .ROUTE .COMPLEX Rx Instructions: PRESCRIBED baclofen 10 mg tablet 10 mg PO DAILY acetaminophen [Tylenol Extra Strength] 500 mg tablet 500 mg PO Q6H PRN (Reason: Pain) Patient Comments: [place] NOT THE PRESCRIBER. famotidine 40 mg tablet 40 mg PO DAILY Patient Comments: [place] NOT THE PRESCRIBER. estradiol 0.01 % (0.1 mg/gram) cream 1 g vaginal 2XW Qty: 42.5 4RF Rx Instructions: Insert nightly x 2 weeks then 2x a week after initial loading dose. Follow-up/Referrals: Rayne,MD Debra [Primary Care Provider] - 2 Weeks ([facility] care follow up ) Time of Disposition: 11:31
== END 2024-11-03 11:40 | disposition home or self-care (01) ==
PROVIDERS: Emergency Provider Nurse Practitioner; PCP Internal Medicine
DX: S61.452A Open bite of left hand, initial encounter (principal); Z79.899 Other long term (current) drug therapy; Z87.891 Personal history of nicotine dependence; W55.01XA Bitten by cat, initial encounter
CPT/HCPCS: 99213; G0463

== ENCOUNTER 2025-05-10 14:45 | Emergency (ER) | payer OTHER, SELFPAY ==
[2025-05-10 14:57] VITALS: BP 118/93; PULSE 94; RESP 18; TEMP 36.9; O2SAT 98
--- NOTE | 2025-05-10 19:13 | ED.SKABFB ---
HPI - Skin/Abscess/Foreign Bdy General Chief complaint: Skin/Abscess/Foreign Body Stated complaint: Insect Bite/Left Leg Time Seen by Provider: 05/10/25 15:00 Source: patient and RN notes reviewed Mode of arrival: ambulatory Limitations: no limitations History of Present Illness HPI narrative: 49-year-old female presents Express Care complaining of bug bites behind her left knee for approximately 1 week. Patient states that she still a spider crawl out of her pant leg approximately 1 week ago and believes the spider better behind her left knee. Patient states they are extremely pruritic and she has unable to control the itching sensation. Patient denies any pain behind her knee. Patient denies any drainage, fevers, back, chills. Patient is not entirely sure why, spider was but denies it being a brown recluse. Related Data Home Medications ?Medication ?Instructions ?Recorded ?Confirmed ?Last Taken ?Type buspirone 10 mg tablet 10 mg PO TID 06/23/20 12/07/24 Unknown History levetiracetam 500 mg tablet 500 mg PO BID 06/23/20 12/07/24 Unknown History topiramate 50 mg tablet 50 mg PO BID 06/23/20 12/07/24 Unknown History albuterol sulfate 90 mcg/actuation 1 inh inhalation Q4H 09/04/20 12/07/24 Unknown History aerosol inhaler baclofen 10 mg tablet 10 mg PO DAILY 09/04/20 12/07/24 Unknown History cyanocobalamin (vitamin B-12) 500 500 mcg PO DAILY 09/04/20 12/07/24 Unknown History mcg tablet (Vitamin B-12) epinephrine 0.1 mg/0.1 mL See Rx Instructions .Route .COMPLEX 09/04/20 12/07/24 Unknown History injection, auto-injector famotidine 40 mg tablet 40 mg PO DAILY 09/04/20 12/07/24 Unknown History naltrexone 50 mg tablet See Rx Instructions .Route .COMPLEX 11/13/22 12/07/24 Unknown History cetirizine 10 mg tablet 10 mg PO DAILY PRN Pain 08/17/23 12/07/24 Unknown History duloxetine 30 mg capsule,delayed 30 mg PO DAILY 08/17/23 12/07/24 Unknown History release nortriptyline 25 mg capsule 25 mg PO DAILY 08/17/23 12/07/24 Unknown History omeprazole 40 mg capsule,delayed mg 11/03/24 12/07/24 Unknown History release prucalopride 2 mg tablet mg 11/03/24 12/07/24 Unknown History (Motegrity) buspirone 15 mg tablet mg 05/10/25 Unknown History Allergies Allergy/AdvReac Type Severity Reaction Status Date / Time Penicillins Allergy Severe Anaphylaxis Verified 05/10/25 15:02 erythromycin base Allergy Intermediate Palpitations, Verified 05/10/25 15:02 chest pain propoxyphene (From Allergy Mild Rash, Verified 05/10/25 15:02 Darvocet-N) Itching hydrocodone Allergy Unknown Rash, Verified 05/10/25 15:02 Itching prochlorperazine (From AdvReac Intermediate Loss of Verified 05/10/25 15:02 Compazine) muscle control Review of Systems Review of Systems: CONSTITUTIONAL: Denies fever, chills, body aches. Or sweats. EYES: Denies visual changes, redness, or discharge. ENT: Denies rhinorrhea, congestion, sore throat, or otalgia. CARDIOVASCULAR: Denies chest pain, palpitations, or edema. RESPIRATORY: Denies cough or dyspnea. GASTROINTESTINAL: Denies abdominal pain, nausea, vomiting, or diarrhea. GENITOURINARY: Denies dysuria or hematuria. SKIN: Denies rash. Positive for bug bite and itching. MUSCULOSKELETAL: Denies back pain, joint pain, or myalgia. NEUROLOGIC: Denies headache, numbness, or weakness. PSYCHIATRIC: Denies anxiety or depression. All other systems reviewed are negative, except as documented in HPI. [facility] Past Medical History Medical History Hiatal hernia Complex regional pain syndrome Missed 2000 Vaginal delivery 12-27-96, , pre term 33.5w, male, 6#2, labor 07-16-99, , pre term 32w, female, 5#9, labor Migraines Anxiety Depression Acid reflux Surgical History Surgical History History of fundoplication Status post insertion of spinal cord stimulator History of knee surgery 1990, left knee 1991, right knee History of tonsillectomy and adenoidectomy 1987 History of cholecystectomy 2011 [place] teeth extracted History of hysterectomy 2015 History of salpingectomy 2014 History of bilateral tubal ligation 1999 Family History Family History Mother Breast cancer Diabetes mellitus Acute myocardial infarction Hypertension Cerebrovascular accident Father Hypertension Hypercholesteremia Social History Social History Years smoked: 29 Smoking status: Former smoker Tobacco type: cigarettes Alcohol intake: never Substance use: never Lack of Transportation: No Lack of Food: Never True Current Housing: I Have Housing Concerned About Future Housing: No Difficulty Paying Gas/Electric Bills: No Difficulty Paying for Meds: No Currently Unemployed: No Education: Trade/Vocational Certificate Living arrangements: with family Gender identity (if verbalized by the patient): Female Comments At the time of my signature, I reviewed and agree with the nursing past medical, surgical, social, and family history. There is no relevant family history pertinent to the patient complaint. Exam Narrative: GENERAL: This is a well-nourished, well-developed adult, in no apparent distress. They are non ill-appearing, nontoxic appearing. HEAD: normocephalic, atraumatic. EYES: Sclera clear/white. Conjunctiva normal. Vision is grossly intact. Extraocular movements intact EARS: External ears normal. Hearing grossly intact. NOSE: External nose normal THROAT: Mucous membranes moist, NECK: Neck supple CARDIOVASCULAR: Regular rate and rhythm RESPIRATORY: Respiratory rate normal, respiratory effort nonlabored, no respiratory distress SKIN: Left knee: There are multiple multiple erythematous puncture wounds to the posterior knee. There is surrounding erythema. No area of fluctuance induration. No exudate. Her rash is very pruritic. No streaking NEURO: awake, alert, and oriented to person, place and time. There were no obvious focal neurologic abnormalities. EXTREMITIES: No joint tenderness, effusion, or edema noted. Course Course Emergency Course: Portions of this record may have been created with voice recognition software Level of Care: Express Care Visit Vital Signs Vital signs: Vital Signs Temperature 98.4 F 05/10/25 14:57 Pulse Rate 94 05/10/25 14:57 Respiratory Rate 18 05/10/25 14:57 Blood Pressure 118/93 H 05/10/25 14:57 Pulse Oximetry 98 05/10/25 14:57 Oxygen Delivery Room Air 05/10/25 14:57 Temperature 98.4 F 05/10/25 14:57 Pulse Rate 94 05/10/25 14:57 Respiratory Rate 18 05/10/25 14:57 Blood Pressure 118/93 H 05/10/25 14:57 Pulse Oximetry 98 05/10/25 14:57 Oxygen Delivery Room Air 05/10/25 14:57 Reviewed MDM - Skin/Abscess/Foreign Bdy MDM Narrative Medical decision making narrative: Likely patient has allergic reaction to insect bites. Patient actively scratching the wounds in the room. Patient advised to status scratching as this may increase the risk of infection. Given her persistent itching will head and prophylactically treat with antibiotics. Will treat with doxycycline. Also will prescribed Kenalog cream to help with symptoms. Discussed physical exam findings. Advised supportive measures and signs/symptoms to go to the ER. Pt is appropriate for outpt treatment and f/u. Differential Diagnosis Differential diagnosis: Likely cellulitis, insect bites, impetigo and contact dermatitis Critical Care Time Critical Care Time Critical Care Time: No Discharge Plan Discharge Clinical Impression: Insect bite Patient Disposition: Home Condition: Stable Instructions: Insect Bite or Sting (ED) Additional Instructions: Use steroid cream as directed, please only apply to the affected area. You may use calamine lotion, camphor, Benadryl cream as needed for itchiness symptoms. You may also take Zyrtec or Claritin as needed for allergy or itchiness symptoms. Take doxycycline as directed. Please wear sunscreen for going to be outside while taking doxycycline. Please stop itching the bug bites as this may increase the risk of worsening infection. Follow-up PCP in 3-5 days. If you develop any worsening redness, swelling, discharge, fevers, breathing problems, pain or any other concerns please go to the ER immediately. Patient Language: Bengali Prescriptions: New triamcinolone acetonide 0.5 % cream 1 applic topical BID 7 Days Qty: 15 0RF doxycycline monohydrate 100 mg capsule 100 mg PO BID 7 Days Qty: 14 0RF No Action naltrexone 50 mg tablet See Rx Instructions .ROUTE .COMPLEX Rx Instructions: PRESCRIBED omeprazole 40 mg capsule,delayed release(DR/EC) Motegrity 2 mg tablet buspirone 10 mg Tablet 10 mg PO TID topiramate 50 mg Tablet 50 mg PO BID levetiracetam 500 mg Tablet 500 mg PO BID buspirone 15 mg tablet nortriptyline 25 mg capsule 25 mg PO DAILY cetirizine 10 mg tablet 10 mg PO DAILY PRN (Reason: Pain) duloxetine 30 mg capsule,delayed release(DR/EC) 30 mg PO DAILY albuterol sulfate 90 mcg/actuation HFA aerosol inhaler 1 inh inhalation Q4H cyanocobalamin (vitamin B-12) [Vitamin B-12] 500 mcg tablet 500 mcg PO DAILY epinephrine 0.1 mg/0.1 mL auto-injector See Rx Instructions .ROUTE .COMPLEX Rx Instructions: PRESCRIBED baclofen 10 mg tablet 10 mg PO DAILY famotidine 40 mg tablet 40 mg PO DAILY Patient Comments: SC NOT THE PRESCRIBER. estradiol 0.01 % (0.1 mg/gram) cream 1 g vaginal 2XW Qty: 42.5 4RF Rx Instructions: Insert nightly x 2 weeks then 2x a week after initial loading dose. Follow-up/Referrals: Block,Shira Qureshi APN [Primary Care Provider] - Time of Disposition: 15:16
== END 2025-05-10 15:27 | disposition home or self-care (01) ==
PROVIDERS: PCP Nurse Practitioner Family
DX: S80.261A Insect bite (nonvenomous), right knee, initial encounter (principal); W57.XXXA Bitten or stung by nonvenomous insect and other nonvenomous arthropods, initial encounter; Z87.891 Personal history of nicotine dependence; K21.9 Gastro-esophageal reflux disease without esophagitis; F41.9 Anxiety disorder, unspecified; F32.A Depression, unspecified
CPT/HCPCS: 99213; G0463

== ENCOUNTER 2025-09-13 13:34 | Outpatient (CLI) | payer OTHER, SELFPAY ==
--- NOTE | ~2025-09-13 | MM_ITS ---
EXAMINATION: MM screening [facility] BI w [place] HISTORY: Screening TECHNIQUE: Craniocaudal and mediolateral oblique 3-D tomosynthesis images were obtained and synthetic 2-D images were generated. CAD analysis was submitted and interpreted. COMPARISON: Comparison to multiple prior studies sequentially, with oldest reviewed study dated 05/15/2019 . BREAST PARENCHYMAL COMPOSITION: Not dense: There are scattered areas of fibroglandular density. FINDINGS: There is no evidence of suspicious mass, calcification, or architectural distortion to suggest malignancy in either breast. There has been no suspicious interval change. IMPRESSION: 1. No mammographic evidence of malignancy. 2. Recommend routine screening mammography in one year. BI-RADS Category 1: Negative Reviewed, dictated and finalized at location B.
--- OUTSIDE RECORDS SUMMARY | 2025-09-13 14:08 | XMS_ITS | Encounter Summary ---
Author Organization [facility] Healthcare Address [address] [place] [address] Care Team Providers Care Leadership Program Intern Name Role Phone Debra Mclain MD Primary Care Provider [phone] Hamzah Batres MD Unavailable [phone] Shira Block NP Primary Care Provider + [phone] Reason for Visit * Reason Onset Date Comments Med Refill 10/04/2019 Encounter Details Date Type Department Care Team (Late st Contact Info) Description 10/04/2019 Telephone [facility] at [facility] [place] [facility] Advanced Medicine [address] [place] [address] [phone] Lance Delgado MD [address] [facility] [address], [address] [place] [id number] Med Refill Social History Tobacco Use Types Packs/Day Years Used Date Smoking Tobacco: Former Cigarettes 0.5 32.8 S tarted: 1993 Smokeless Tobacco: Never Comments:Smoking History Pac ks/day: 3 Cigarettes Alcohol Use Standard Drinks/Week Comments No 0 (1 standard drink = 0.6 oz pur e alcohol) rare PHQ-2 Answer Date Recorded PHQ-2 Score 4 07/07/2019 Comments No Sex and Gender Information Value Date Recorded Sex Assigned at Not on file Legal Sex Female 7:05 PM PLASMA PROCESSOR Gender Identity Female 09/22/2021 9:22 AM PLASMA PROCESSOR Sexual Orientation Straight 09/22/2021 9: 22 AM PLASMA PROCESSOR documented as of this encounter Plan of Treatment Not on file documented as of this encounter Goals Goal Patient Goal Type Associated Problems Recent Progress Patient-Stated? Author CCM Chronic Pain Care Plan Chronic Care Management On track(2024 12:47 PM CDT) Angelica Wheatley Note: Problem: Chronic Pain Goals: 1. Minimize further functional decline 2. Maximize quality of life 3. Control pain Strategies: - Activity/exercise program recommendation - Conservative stepwise pain medicine strategy with multi-disciplinary approach - Recommend healthy lifestyle strategies and compensatory methods as needed documented as of this encounter Visit Diagnoses Not on filedocumented in this encounter Additional Health Concerns Infection Onset Date Last Indicated Resolved Time COVID19 Comment:Added automatically from problem list. 03/12/2020 03/12/2020 03/26/2020 3:05 AM C DT COVID: Recovered Comment:Added based on recent COVID infection. 03/26/2020 07/03/2020 08/23/2020 3:05 AM C DT COVID: Suspected 06/19/2021 06/19/2021 06/19/2021 5:31 PM CDT documented as of this encounter Care Teams Leadership Program Intern Relationship Specialty Start Date End Date Debra Mclain MD [address] [place] [address] PCP - General 03/16/19 02/01/25 Shira Block NP [address] [facility] [place] [address] PCP - General Nurse Practitioner 02/02/25 Hamzha Batres MD [address] [place] [address] Consulting Physician Gastroenterology 11/19/23 documented as of this encounter
--- OUTSIDE RECORDS SUMMARY | 2025-09-13 14:08 | XMS_ITS | Encounter Summary ---
Author Organization [facility] Healthcare Address [address] [place] [address] Care Team Providers Care Hse Advisor Name Role Phone Hamzah Batres MD Unavailable Shira Block NP Primary Care Provider [phone] Reason for Visit * Reason Onset Date Comments PMC Preprocedure 07/12/2025 Encounter Details Date Type Department Care Team (Late st Contact Info) Description 07/12/2025 Telephone [facility] at the [place] [facility] [address] [facility] Advanced Medicine [address] [place], [place] [id number] Lynda Arnold MD PhD [address] [facility] [phone] [place], [place] [id number] PMC Preprocedure Social History Tobacco Use Types Packs/Day Years Used Date Smoking Tobacco: Every Day Cigarettes 0.5 28.8 Started: 1992; Last attempted to quit: 2020 Passive Smoke Exposure: Current Smokeless Tobacco: Never Alcohol Use Standard Drinks/Week Comments No 0 (1 standard drink = 0.6 oz pur e alcohol) PHQ-2 Answer Date Recorded PHQ-2 Score 4 07/07/2019 Hunger Vital Sign Answer Date Recorded Within the past 12 months, y ou worried that your food would run out before you got the money to buy more. Never true 05/23/20 25 Within the past 12 months, t he food you bought just didn't last and you didn't have money to get more. Never true 05/23/2025 AUDIT-C Answer Date Recorded Q1: How often do you have a drink containing alc ohol? Never 07/05/2025 Average Number of Drinks Not on file 025 Frequency of Binge Drinking Not on file 06/16 Personal Safety Answer Date Recorded Have you ever been in or are you currently in a harmful physical or emotional relationship or is someone making you feel afraid or unsafe? Denies 03/15/2025 Comments No Sex and Gender Information Value Date Recorded Sex Assigned at Not on file Legal Sex Female 7:05 PM SHIPYARD HELPER Gender Identity Female 09/22/2021 9:22 AM SHIPYARD HELPER Sexual Orientation Straight 09/22/2021 9: 22 AM SHIPYARD HELPER documented as of this encounter Plan of Treatment Not on file documented as of this encounter Goals Goal Patient Goal Type Associated Problems Recent Progress Patient-Stated? Author CCM Chronic Pain Care Plan Chronic Care Management On track(2024 12:47 PM CDT) No Angelica Price Note: Problem: Chronic Pain Goals: 1. Minimize further functional decline 2. Maximize quality of life 3. Control pain Strategies: - Activity/exercise program recommendation - Conservative stepwise pain medicine strategy with multi-disciplinary approach - Recommend healthy lifestyle strategies and compensatory methods as needed documented as of this encounter Visit Diagnoses Not on filedocumented in this encounter Care Teams Hse Advisor Relationship Specialty Start Date End Date Shira Block NP [address] [place] [address] PCP - General Nurse Practitioner 02/02/25 Hamzah Batres MD [address] [place] [address] Consulting Physician Gastroenterology 11/19/23 documented as of this encounter
--- OUTSIDE RECORDS SUMMARY | 2025-09-13 14:08 | XMS_ITS | Encounter Summary ---
Author Organization [facility] Address [address] [place] [address] Phone Care Team Providers Care Reconditioning Associate Name Role Phone Dru Roche MD Primary Care Provider [phone] Debra Mclain MD Primary Care Provider [phone] Hamzah Batres MD Unavailable Shira Block NP Primary Care Provider [phone] Encounter Details Date Type Department Care Team (Late st Contact Info) Description 02/07/2019 Telephone [facility] Medicine Pain Management [address] [place] [id number] Lance Delgado MD [facility] [place] [address] Social History Tobacco Use Types Packs/Day Years Used Date Smoking Tobacco: Heavy Smoker Cigarettes 0.5 32.8 Started: 1992 Smokeless Tobacco: Never Comments:Smoking History Pac ks/day: 3 Cigarettes Alcohol Use Standard Drinks/Week Comments No 0 (1 standard drink = 0.6 oz pur e alcohol) rare Comments No Sex and Gender Information Value Date Recorded Sex Assigned at Not on file Legal Sex Female 7:05 PM CANDY COOKER HELPER Gender Identity Female 09/22/2021 9:22 AM CANDY COOKER HELPER Sexual Orientation Straight 09/22/2021 9: 22 AM CANDY COOKER HELPER documented as of this encounter Plan [...] documented as of this encounter Care Teams Reconditioning Associate Relationship Specialty Start Date End Date Dru Roche MD [address] [address] PCP - General 02/12/17 03/15/19 Debra Mclain MD [address] [place] [address] PCP - General 03/16/19 02/01/25 Shira Block NP [address] [place] [address] PCP - General Nurse Practitioner 02/02/25 Hamzah Batres MD [address] [place] [address] Consulting Physician Gastroenterology 11/19/23 documented as of this encounter
--- OUTSIDE RECORDS SUMMARY | 2025-09-13 14:08 | XMS_ITS | Encounter Summary ---
Author Organization [facility] Healthcare Address [address] [place] [address] Care Team Providers Care Lifeline Representatives Name Role Phone Debra Mclain MD Primary Care Provider [phone] Hamzah Batres MD Unavailable Shira Block NP Primary Care Provider [phone] Reason for Visit * Reason Onset Date Comments Letter for School/Work 01/12/2020 Encounter Details Date Type Department Care Team (Late st Contact Info) Description 01/12/2020 Telephone [facility] Pain Center at the [place] for Advanced Medicine [address] [facility] Advanced Medicine [address] [place] [phone] Lance Delgado MD [address] [facility] [address], [address] [place] [id number] Letter for School/Work Social History Tobacco Use Types Packs/Day Years Used Date Smoking Tobacco: Some Days Cigarettes 0.5 32.8 Started: 1992 Smokeless Tobacco: Never Comments:currently using pat ch to help stop smoking Alcohol Use Standard Drinks/Week Comments No 0 (1 standard drink = 0.6 oz pur e alcohol) rare PHQ-2 Answer Date Recorded PHQ-2 Score 4 07/07/2019 Comments No Sex and Gender Information Value Date Recorded Sex Assigned at Not on file Legal Sex Female 7:05 PM TRANSIT DEPARTMENT CLERK Gender Identity Female 09/22/2021 9:22 AM TRANSIT DEPARTMENT CLERK Sexual Orientation Straight 09/22/2021 9: 22 AM TRANSIT DEPARTMENT CLERK documented as of this encounter Plan of [...] documented as of this encounter Care Teams Lifeline Representatives Relationship Specialty Start Date End Date Debra Mclain MD [address] [facility] [place] [address] PCP - General 03/16/19 02/01/25 Shira Block NP [address] [facility] [place] [address] PCP - General Nurse Practitioner 02/02/25 Hamzah Batres MD [address] [place] [address] Consulting Physician Gastroenterology 11/19/23 documented as of this encounter
--- OUTSIDE RECORDS SUMMARY | 2025-09-13 14:08 | XMS_ITS | Encounter Summary ---
Author Organization [facility] Healthcare Address [address] [place] [address] Care Team Providers Care Technical Applications Scientist Name Role Phone Debra Mclain MD Primary Care Provider [phone] Hamzah Batres MD Unavailable Shira Block NP Primary Care Provider [phone] Encounter Details Date Type Department Care Team (Late st Contact Info) Description 05/02/2020 Telephone [facility] [address] [place] [address] Daksha Nick, CHASE Social History Tobacco Use Types Packs/Day Years Used Date Smoking Tobacco: Former Cigarettes 0.5 32.8 S tarted: 1993 Smokeless Tobacco: Never Comments:currently using pat ch to help stop smoking Alcohol Use Standard Drinks/Week Comments No 0 (1 standard drink = 0.6 oz pur e alcohol) rare PHQ-2 Answer Date Recorded PHQ-2 Score 4 07/07/2019 Comments No Sex and Gender Information Value Date Recorded Sex Assigned at Not on file Legal Sex Female 7:05 PM SINGLE NEEDLE OPERATOR Gender Identity Female 09/22/2021 9:22 AM SINGLE NEEDLE OPERATOR Sexual Orientation Straight 09/22/2021 9: 22 AM SINGLE NEEDLE OPERATOR documented as of this encounter Plan of Treatment Not on file documented as of this encounter Goals Goal Patient Goal Type Associated Problems Recent Progress Patient-Stated? Author HENRY Chronic Pain Care Plan Chronic Care Management [...] Infection Onset Date Last Indicated Resolved Time COVID: Recovered Comment:Added based on recent COVID infection. 03/26/2020 07/03/2020 08/23/2020 3:05 AM C DT COVID: Suspected 06/19/2021 06/19/2021 06/19/2021 5:31 PM CDT documented as of this encounter Care Teams Technical Applications Scientist Relationship Specialty Start Date End Date Debra Mclain MD [address] [place] [address] PCP - General 03/16/19 02/01/25 Shira Block NP [address] [place] [address] PCP - General Nurse Practitioner 02/02/25 Hamzah Batres MD [address] [place] [address] Consulting Physician Gastroenterology 11/19/23 documented as of this encounter
--- OUTSIDE RECORDS SUMMARY | 2025-09-13 14:08 | XMS_ITS | Encounter Summary ---
Author Organization [facility] Healthcare Address [address] [place] [address] Care Team Providers Care Sliver Former Name Role Phone Debra Mclain MD Primary Care Provider [phone] Hamzah Batres MD Unavailable [phone] Shira Block NP Primary Care Provider [phone] Encounter Details Date Type Department Care Team (Late st Contact Info) Description 05/01/2020 Telephone [facility] [address] [place] [address] Donita Castaneda, RDMS Social History Tobacco Use Types Packs/Day Years [...] on file Legal Sex Female 7:05 PM SLIDE MACHINE TENDER Gender Identity Female 09/22/2021 9:22 AM SLIDE MACHINE TENDER Sexual Orientation Straight 09/22/2021 9: 22 AM SLIDE MACHINE TENDER documented as of this encounter Plan of [...] documented as of this encounter Care Teams Sliver Former Relationship Specialty Start Date End Date Debra Mclain MD [address] [place] [address] PCP - General 03/16/19 02/01/25 Shira Block NP [address] [place] [address] PCP - General Nurse Practitioner 02/02/25 Hamzah Batres MD [address] [place] [address] Consulting Physician Gastroenterology 11/19/23 documented as of this encounter
--- OUTSIDE RECORDS SUMMARY | 2025-09-13 14:08 | XMS_ITS | Encounter Summary ---
Author Organization [facility] Healthcare Address [address] [place] [address] Care Team Providers Care Medical Billing Specialist Name Role Phone Dru Roche MD Primary Care Provider [phone] Debra Mclain MD Primary Care Provider [phone] Hamzah Batres MD Unavailable +- [phone] Shira Block NP Primary Care Provider [phone] Reason for Visit * Reason Onset Date Comments Call Back 11/21/2018 Encounter Details Date Type Department Care Team (Late st Contact Info) Description 11/21/2018 Telephone [facility] [address] [facility] [address] [place] [address] Lance Delgado MD [address] [address], [address] [id number] Call Back Social History Tobacco Use Types Packs/Day Years [...] on file Legal Sex Female 7:05 PM TILE FITTER Gender Identity Female 09/22/2021 9:22 AM TILE FITTER Sexual Orientation Straight 09/22/2021 9: 22 AM TILE FITTER documented as of this encounter Miscellaneous Notes * Telephone Encounter - Johana Yoo - 11/21/2018 3:25 PM CST Pt lm asking for a call back. Asking about her paperwork that Dr. Delgado was suppose to fill out at her last visit and Naltrexone rx cannot be filled as compound at [facility]. Pt states last timeDrSophy Danny prescribed 50mg's and she took a .25 tablet FITTER documented in this encounter Plan of Treatment Not on file documented as of this encounter Visit Diagnoses [...] documented as of this encounter Care Teams Medical Billing Specialist Relationship Specialty Start Date End Date Dru Roche MD [address] [address] PCP - General 02/12/17 03/15/19 Debra Mclain MD [address] [place] [address] PCP - General 03/16/19 02/01/25 Shira Block NP [address] [facility] [place] [address] PCP - General Nurse Practitioner 02/02/25 Hamzah Batres MD [address] [place] [address] Consulting Physician Gastroenterology 11/19/23 documented as of this encounter
--- OUTSIDE RECORDS SUMMARY | 2025-09-13 14:08 | XMS_ITS | Encounter Summary ---
Author Organization [facility] Healthcare Address [address] [place] [address] Care Team Providers Care Cell Feed Department Supervisor Name Role Phone Dru Roche MD Primary Care Provider [phone] Debra Mclain MD Primary Care Provider [phone] Hamzah Batres MD Unavailable [phone]- [phone] Shira Block NP Primary Care Provider + [phone] Reason for Visit * Reason Onset Date Comments Chart Review 06/07/2018 [facility] Eval Encounter Details Date Type Department Care Team (Late st Contact Info) Description 06/07/2018 Telephone [facility] [address] [facility] Advanced Medicine [address] [place] [address] Lance Delgado MD [address] [place] [address], [place] [id number] Chart Review (Independent Medical Eval) Social History Tobacco Use Types Packs/Day Years Used Date Smoking Tobacco: Light Smoker Smokeless Tobacco: Never Comments:Smoking History Pac ks/day: 3 Cigarettes Alcohol Use Standard Drinks/Week Comments No 0 (1 standard drink = 0.6 oz pur e alcohol) Comments Unknown Sex and Gender Information Value Date Recorded Sex Assigned at Not on file Legal Sex Female 7:05 PM LEARNING AND DEVELOPMENT COORDINATOR Gender Identity Female 09/22/2021 9:22 AM LEARNING AND DEVELOPMENT COORDINATOR Sexual Orientation Straight 09/22/2021 9: 22 AM LEARNING AND DEVELOPMENT COORDINATOR documented as of this encounter Plan of [...] documented as of this encounter Care Teams Cell Feed Department Supervisor Relationship Specialty Start Date End Date Dru Roche MD [address] [place] [address] PCP - General 02/12/17 03/15/19 Debra Mclain MD [address] [place] [address] PCP - General 03/16/19 02/01/25 Shira Block NP [address] [place] [address] PCP - General Nurse Practitioner 02/02/25 Hamzah Batres MD [address] [facility] [address] [place] [address] Consulting Physician Gastroenterology 11/19/23 documented as of this encounter
--- OUTSIDE RECORDS SUMMARY | 2025-09-13 14:08 | XMS_ITS | Encounter Summary ---
Author Organization [facility] Healthcare Address [address] [place] [address] Care Team Providers Care Supervisor Lace Tearing Name Role Phone Hamzah Batres MD Unavailable Shira Block NP Primary Care Provider + [phone] Reason for Visit * Reason Onset Date Comments PMC Preprocedure 05/17/2025 Encounter Details Date Type Department Care Team (Late st Contact Info) Description 05/17/2025 Telephone [facility] at [facility] [place] [facility] [address] [facility] Advanced [facility] [address] [place] [address] Salomon Wiggins MD [address] [facility] [address] [facility] [phone] [place], [place] [id number] PMC Preprocedure Social History Tobacco Use Types Packs/Day Years Used Date Smoking Tobacco: Every Day Cigarettes 0.5 28.8 Started: 1992; Last attempted to quit: 2020 Passive Smoke Exposure: Current Smokeless Tobacco: Never Alcohol Use Standard Drinks/Week Comments No 0 (1 standard drink = 0.6 oz pur e alcohol) AUDIT-C Answer Date Recorded Q1: How often do you have a drink containing alcohol? Never 04/12/2025 Q2: How many drinks containi ng alcohol do you have on a typical day when you are drinking? Patient does not drink Q3: How often do you have si x or more drinks on one occasion? Never 04/12/2025 PHQ-2 Answer Date Recorded PHQ-2 Score 4 07/07/2019 Personal Safety Answer Date Recorded Have you ever been in or are you currently in a harmful physical or emotional relationship or is someone making you feel afraid or unsafe? Denies 03/15/2025 Comments No Sex and Gender Information Value Date Recorded Sex Assigned at Not on file Legal Sex Female 7:05 PM RUG CLEANER HELPER Gender Identity Female 09/22/2021 9:22 AM RUG CLEANER HELPER Sexual Orientation Straight 09/22/2021 9: 22 AM RUG CLEANER HELPER documented as of this encounter Plan [...] on filedocumented in this encounter Care Teams Supervisor Lace Tearing Relationship Specialty Start Date End Date Shira Block NP [address] [place] [address] PCP - General Nurse Practitioner 02/02/25 Hamzah Batres MD [address] [place] [address] Consulting Physician Gastroenterology 11/19/23 documented as of this encounter
--- OUTSIDE RECORDS SUMMARY | 2025-09-13 14:08 | XMS_ITS | Encounter Summary ---
Author Organization [facility] Address [address] [facility] [address] [place] [address] Care Team Providers Care Ophthalmology Assistant Name Role Phone Dru Roche MD Primary Care Provider [phone] Dru Roche MD Primary Care Provider [phone] Debra Mclain MD Primary Care Provider [phone] Hamzah Batres MD Unavailable [phone]- [phone] Shira Block NP Primary Care Provider + [phone] Encounter Details Date Type Department Care Team (Late st Contact Info) Description 11/24/2016 Orders Only [facility] MD [address] [place] [address] Social History Tobacco Use Types Packs/Day Years Used Date Smoking Tobacco: Light Smoker Cigarettes Last attempted t o quit: 2014 Comments:Smoking History Pac ks/day: 3 Cigarettes Alcohol Use Standard Drinks/Week Comments No 0 (1 standard drink = 0.6 oz pur e alcohol) Comments Unknown Sex and Gender Information Value Date Recorded Sex Assigned at Not on file Legal Sex Female 7:05 PM SHEARING SUPERVISOR Gender Identity Female 09/22/2021 9:22 AM SHEARING SUPERVISOR Sexual Orientation Straight 09/22/2021 9: 22 AM SHEARING SUPERVISOR documented as of this encounter Plan of Treatment Not on file documented as of this encounter Procedures Procedure Name Priority Date/Time Associated Diagnosis Comments CARDIOLOGY REPORT 11/24/2016 documented in this encounter Results * CARDIOLOGY REPORT (11/24/2016) Anatomical Region Laterality Modality Other Narrative 11/24/2016 Ordered by an unspecified provider. us Historical Provider [facility] DESIRE ZIEGLER Final Result documented in this encounter Visit Diagnoses Not on filedocumented in this encounter Additional Health Concerns Infection Onset Date Last Indicated Resolved Time COVID19 Comment:Added automatically from problem list. 03/12/2020 03/12/2020 03/26/2020 3:05 AM C DT COVID: Recovered Comment:Added based on recent COVID infection. 03/26/2020 07/03/2020 08/23/2020 3:05 AM C DT COVID: Suspected 06/19/2021 06/19/2021 06/19/2021 5:31 PM CDT documented as of this encounter Care Teams Ophthalmology Assistant Relationship Specialty Start Date End Date Dru Roche MD [address] [place] [address] PCP - General 02/12/17 03/15/19 Dru Roche MD [address] [place] [address] PCP - General 02/25/15 02/11/17 Debra Mclain MD [address] [facility] [place] [place] [address] PCP - General 03/16/19 02/01/25 Shira Block NP [address] [facility] [place] [address] PCP - General Nurse Practitioner 02/02/25 Hamzah Batres MD [address] [place] [address] Consulting Physician Gastroenterology 11/19/23 documented as of this encounter
--- OUTSIDE RECORDS SUMMARY | 2025-09-13 14:09 | XMS_ITS | Clinical Summary ---
Author Organization [facility] Address [address] [place] [address] Care Team Providers Care Casualty Claims Supervisor Name Role Phone Hamzah Batres MD Unavailable Shira Block NP Primary Care Provider + [phone] Allergies Active Allergy Reactions Criticality Noted Date Comments Erythromycin Shortness of breath,Other (See comments) High 01/08/2025 erythromycin Erythromycin Lactobionate Shortness of breath,Other (See comments) High 03/05/2023 Hydrocodone-Acetaminophen Hives,Other (S ee comments) Medium 01/08/2025 Latex Itching,Rash,Blister s High 11/11/2023 Penicillins Anaphylaxis,Other (See comments) High 01/08/2025 Prochlorperazine Other (See comments) Low dyskenesia Propoxyphene-Acetaminophen Hives Medium Dexamethasone Rash Medium 08/30/2018 Venom-Honey Bee Anaphylaxis High 04/11/2019 Wasp, hornets Medications EPINEPHrine (EPIPEN) 0.3 mg/0.3 mL injection syringe inject 0.3 milliliter by intramuscular route once as needed for anaphylaxis 1 kit 0 017 Active acetaminophen (TYLENOL) 500 mg tabletIndication s:Pain Take 2 tablets (1,000 mg total) by mouth every 6 (six) hours as needed for pain Crush pills until 12/02 then may take pills whole 024 Active cetirizine (ZyrTEC) 10 mg tabletIndication s:Allergic Rhinitis Take 1 tablet (10 mg total) by mouth every morning Crush pills until 12/02 then may take pills whole Active montelukast (SINGULAIR) 10 mg tabletIndication s:Maintenance Therapy for Asthma Take 1 tablet (10 mg total) by mouth nightly Crush pills until 12/02 then may take pills whole Active cholecalciferol (VITAMIN D-3) 47809 unit capsuleIndicatio ns:Vitamin D Deficiency Take 1 capsule (10,000 Units total) by mouth every morning Active cyanocobalamin (Vitamin B-12) 500 mcg tabletIndication s:Prevention of Vitamin B12 Deficiency Take 1 tablet (500 mcg total) by mouth every morning Active diphenhydrAMINE 25 mg capsuleIndicatio ns:itching/aller gies/sleep Take 1 tablet/capsule (25 mg total) by mouth every 6 (six) hours as needed for itching or sleep Active nortriptyline (PAMELOR) 25 mg capsuleIndicatio ns:sleep Take 3 capsules (75 mg total) by mouth nightly Crush pills until 12/02 then may take pills whole 90 capsule Active topiramate (TOPAMAX) 50 mg tabletIndication s:leg spasms- nerve pain Take 1 tablet (50 mg total) by mouth 2 (two) times a day 60 tablet 024 Active baclofen (LIORESAL) 10 mg tabletIndication s:CRPS , nerve pain - One tab in am and afternoon and two tabs at bedtime 120 tablet 024 Active albuterol HFA (PROVENTIL HFA,VENTOLIN HFA,PROAIR HFA) 90 mcg/actuation inhalerIndicatio ns:Acute Asthma Attack Inhale 2 puffs every 6 (six) hours as needed for wheezing or shortness of breath 025 Active ondansetron ODT (ZOFRAN-ODT) 4 mg disintegrating tabletIndication s:nausea/vomitin g Take 1 tablet (4 mg total) by mouth every 8 (eight) hours as needed for nausea or vomiting 025 Active busPIRone (BUSPAR) 15 mg tabletIndication s:Generalized Anxiety Disorder Take 1 tablet (15 mg total) by mouth 3 (three) times a day Active budesonide-formo teroL (SYMBICORT) 160-4.5 mcg/actuation inhalerIndicatio ns:Maintenance Therapy for Asthma Inhale 2 puffs 2 (two) times a day Rinse mouth with water after use. Do not swallow. Active triamcinolone (KENALOG) 0.5 % cream APPLY TOPICALLY TO THE AFFECTED AREA TWICE DAILY FOR 7 DAYS Active levETIRAcetam (KEPPRA) 500 mg tabletIndication s:CRPS nerve pain Take 3 tablets (1,500 mg total) by mouth 2 (two) times a day 180 tablet 3 Active Additional Information Patient taking differently:1,500 mg oral 2 times daily,Takes 1000 mg TID, Indications: CRPS nerve pain, Reported on 08/21/[address] (NexIUM) 40 mg capsuleIndicatio ns:GERD Take 1 capsule (40 mg total) by mouth 2 (two) times a day 60 capsule 11 025 08/[address] (CYMBALTA) 30 mg capsule Take 1 capsule (30 mg total) by mouth 3 times a day Active prucalopride (MOTEGRITY) 2 mg tablet Take 1 tablet (2 mg total) by mouth daily 90 tablet 3 024 08/21 Discontinued( Patient Reported) DULoxetine DR (CYMBALTA) 60 mg capsule Take 1 capsule (60 mg total) by mouth daily 025 08/21 Discontinued( Patient Reported) mupirocin (BACTROBAN) 2 % ointmentIndicati ons:Methicillin- Resistant S. Aureus Nasal Colonization Apply ointment with qtip each nostril twice a day for 7 days before surgery 22 g 025 08/21 Discontinued( Patient Reported) lubiprostone (AMITIZA) 24 mcg capsule Take 1 capsule (24 mcg total) by mouth 2 (two) times a day with meals Take with meals 180 capsule 3 025 08/21 Discontinued( Patient Reported) hydrocortisone (ANUSOL-HC) 25 mg suppository Insert 1 suppository (25 mg total) into the rectum 2 (two) times a day as needed for hemorrhoids 28 suppository 11 025 08/21 Discontinued naltrexone (DEPADE) 50 mg tabletIndication s:chronic pain Take 1/4 tab three times a day 68 tablet 11 025 08/21 Discontinued( Patient Reported) Active Problems Problem Noted Date Diagnosed Date Encounter for fitting and ad justment of spinal cord stimulator 01/11/2025 Complex regional pain syndro me type 1 of both lower extremities 01/11/2025 Complex regional pain syndro me type 1 of both lower extremities 01/11/2025 History of fundoplication 02/23/2024 Hyperlipidemia 12/08/2023 Hiatal hernia 11/26/2023 Hiatal hernia with gastroesophageal reflux 11/25 Overview (01/08/2025): -s/p repair and partial fundoplication 12/08 Bleeding internal hemorrhoids 11/24/2023 Dysphagia 09/02/2023 Overview (01/08/2025): due to esophageal dysmotility -getting evaluated with GI Uterovaginal prolapse 09/02/2023 Overview (01/08/2025): -sees specialsit Esophageal dysphagia 08/04/2023 BRBPR (bright red blood per rectum) 08/02/2023 Gastroesophageal reflux dise ase with esophagitis without hemorrhage 08/02/2023 Esophageal dysmotility 08/02/2023 Chronic superficial gastritis without bleeding 0 01/13/2023 History of gastric ulcer 01/13/2023 Irritable bowel syndrome with constipation 12/11 Internal hemorrhoids 12/11/2022 Oropharyngeal dysphagia 08/03/2022 Assessment & Plan (08/03/2022 3:56 PM CDT): Protonix 30-60 minutes before a meal Continue Pepcid 40 mg at bedtime Continue good dental hygiene Continue Cetirizine daily for right now Modified Barium swallow Thyroid US Referral to GI for Reflux Palpitations 03/17/2022 03/05/2023 Overview (01/08/2025): sees cardio Bladder pain 11/06/2020 Chronic maxillary sinusitis 08/20/2020 Assessment & Plan (09/11/2020 10:56 AM CDT): Peridex mouth rinse and spits after meals and before bedtime Nasal saline spray (Simply saline, Little Remedies, [place], [place]) 2 second sprays or 2 squeezes into each nostril while looking down over the sink, do not need to sniff in. Followed by Nasonex 2 sprays into each nostril while looking down over the sink, do not sniff in or blow nose after use for at least 30 minutes Assessment & Plan (08/20/2020 10:47 AM CDT): Levaquin daily with a meal Flonase 2 sprays into each nostril while looking down over the sink, do not sniff in or blow nose after use for at least 30 minutes Rescope in 3-4 weeks to recheck Laryngopharyngeal reflux (LPR) 08/20/2020 Assessment & Plan (08/03/2022 3:56 PM CDT): Protonix 30-60 minutes before a meal Continue Pepcid 40 mg at bedtime Continue good dental hygiene Continue Cetirizine daily for right now Modified Barium swallow Thyroid US Referral to GI for Reflux Assessment & Plan (08/20/2020 10:47 AM CDT): Continue Protonix Start Pepcid at bedtime Slowly back off Dr. Sahu or any soda and caffeine after lunch to a goal of 1-2 cups of coffee in the morning and on Dr. Sahu 16 ounce by Lunch then increase to 64 ounces of caffeine free and soda free fluid daily Leukoplakia of tongue 08/20/2020 Assessment & Plan (09/11/2020 10:55 AM CDT): Peridex mouth rinse and spits after meals and before bedtime Nasal saline spray (Simply saline, Little Remedies, [place], [place]) 2 second sprays or 2 squeezes into each nostril while looking down over the sink, do not need to sniff in. Followed by Nasonex 2 sprays into each nostril while looking down over the sink, do not sniff in or blow nose after use for at least 30 minutes Continue to decrease Soda intake Assessment & Plan (08/20/2020 10:47 AM CDT): Levaquin daily with a meal Flonase 2 sprays into each nostril while looking down over the sink, do not sniff in or blow nose after use for at least 30 minutes Rescope in 3-4 weeks to recheck Continue Protonix Start Pepcid at bedtime Slowly back off Dr. Sahu or any soda and caffeine after lunch to a goal of 1-2 cups of coffee in the morning and on Dr. Sahu 16 ounce by Lunch then increase to 64 ounces of caffeine free and soda free fluid daily Migraine without aura and wi thout status migrainosus, not intractable 07/07/2020 Insomnia due to medical condition 07/07/2020 Reactive depression 07/07/2020 Thyroid nodule 12/21/2019 Overview (01/08/2025): us [id number] further f/u needed Assessment & Plan (08/03/2022 3:56 PM CDT): Protonix 30-60 minutes before a meal Continue Pepcid 40 mg at bedtime Continue good dental hygiene Continue Cetirizine daily for right now Modified Barium swallow Thyroid US Referral to GI for Reflux Spondylosis of cervical sia on without myelopathy or radiculopathy 08/09/2019 Cervicalgia 08/09/2019 Muscle spasm 08/09/2019 Migraine with aura and witho ut status migrainosus, not intractable 08/02/2019 Headache 03/15/2019 03/05/2023 Overview (01/08/2025): sees neuro Pain of right lower extremity 03/15/2019 Nerve pain 12/27/2018 Goiter 10/24/2018 Chronic bronchitis 10/05/2018 Assessment & Plan (10/05/2018 1:31 PM GRAIN MANAGER): Continues to have persistent Cough since her 09/12/18 surgery She has had a round of Bactrim but still having some chills, fevers, coughing, body aches Will get CXR to check for pneumonia Pt. Does have hx of heavy smoking and had surgery under anesthesia She continues to smoke 2-3 cigarettes a day-encouraged to stip Doxycycline ordered for 10 days Medrol dose pack Take your antibiotic as directed You may take a cough suppressant to calm your cough (dayquil, delsym, or nyquil) If your cough is productive or you have tight chest congestion with thick mucus- you can use a cough expectorant like Mucinex Benadryl/Zyrtec can be used to dry up a runny nose along with a nasal spray like azelastine or mometasone.. The use of Chlorpheniramine (antihistamine) plus pseudoephedrine (decongestant) has been proven to be helpful. Avoid environmental triggers and allergen Drink plenty of fluids and get plenty of rest Tylenol/Motrin for pain/fever If you are not better in the next 5 days, follow up w PCP. Refused influenza vaccine 10/05/2018 Gastroesophageal reflux disease without esophagi tis 10/05/2018 Assessment & Plan (10/05/2018 1:32 PM GRAIN MANAGER): Reports increased acid reflux This may be contributing also to her cough Start Omeprozole daily GERD Recommend Weight loss for patients with GERD who are overweight. Elevate of the head of the bed in individuals with nocturnal symptoms like cough, hoarseness, throat clearing. This can be achieved either by putting six- to eight-inch blocks under the legs at the head of the bed or a Styrofoam wedge under the mattress. We also suggest a corollary to this recommendation: refraining from assuming a supine position after meals and avoidance of meals two to three hours before bedtime. Dietary modification. Suggest selective elimination of dietary triggers like fatty foods, caffeine, chocolate, spicy foods, food with high fat content, carbonated beverages, and peppermint. Avoid tight-fitting garments to prevent increasing intragastric pressure. Promotion of salivation through oral lozenges/chewing gum to neutralize refluxed acid and increases the rate of esophageal acid clearance. Avoidance of tobacco and alcohol as both reduce lower esophageal sphincter pressure and smoking also diminishes salivation. Try Abdominal breathing exercise to strengthen the ant-reflux barrier of the lower esophageal sphincter. Red flags symptoms include difficulty swallowing, bleeding, anemia, weight loss, and recurrent vomiting. If you have any of these, go to ER BMI 25.0-25.9,adult 10/05/2018 Assessment & Plan (10/05/2018 1:29 PM GRAIN MANAGER): Diet= low-carb Limit white bread, rice, pasta, potatoes, juice, energy drinks, coffee creamers with sugar, sugar sodas, candy, cake, cookies, ice cream. Be more careful with starchy vegetables like corn, carrots, and fruits. Stay away from processed foods, fast foods, fried foods. The cornerstone of this diet is lean grilled meats, green salads or cooked greens, fat-free milk, cottage cheese, nuts like [id number], protein bars with 10-15 g of protein and 20-30 g of carbohydrate. Choose whole grain breads and pastas, brown rice, sweet potatoes, read onions--these whole grains absorb more slowly thus blood sugar does not surge so high so quickly. Avoid drinking juice, eat a piece of fruit instead. Chronic pain due to trauma 06/19/2018 Hematuria 08/13/2017 Anxiety 05/27/2017 Pain of right lower extremity 05/27/2017 Overview (01/08/2025): due to CRPS-s/p spinal cord stimulator - pain mx and pain psych -work comp related Gastric reflux 05/27/2017 Neuralgia 05/27/2017 Ankle pain 03/02/2017 Pain of foot 09/28/2016 Overview (03/10/2018): Great toe pain, right Paronychia of toe 09/01/2016 Overview (02/18/2017): Paronychia of great toe, left Vitamin D deficiency 06/05/2016 Overview (02/18/2017): Vitamin D deficiency Seasonal allergic rhinitis 06/05/2016 Overview (02/18/2017): Seasonal allergies Chronic gastric ulcer 06/05/2016 Overview (02/18/2017): Chronic stomach ulcer Mixed anxiety and depressive disorder 06/05/2016 Overview (01/08/2025): Anxiety and depression pt is on duloxetine -off of venlafaxine Oral lesion 05/19/2016 Overview (02/18/2017): Oral lesion Bad taste in mouth 05/19/2016 Overview (02/18/2017): Bad taste in mouth Anemia 01/14/2015 Overview (02/18/2017): Anemia Resolved Problems Problem Noted Date Diagnosed Date Resolved Date Other chronic pain 06/19/2018 Willing to be kidney donor 07/23/2016 0 03/02/2025 Hiatal hernia 06/05/2016 03/10/2023 Overview (03/10/2018): Hiatal hernia Tobacco use 06/05/2016 10/24/2018 Overview (02/18/2017): Tobacco use Assessment & Plan (10/05/2018 11:42 AM GRAIN MANAGER): Quit Smoking https://smokefree.gov/ Nicotine replacement therapy (NRT) is the most commonly used family of quit smoking medications. NRT reduces withdrawal feelings by giving you a small controlled amount of nicotine?but none of the other dangerous chemicals found in cigarettes. This small amount of nicotine helps satisfy your craving for nicotine and reduces the urge to smoke. NRT can t do all the work. It can help with withdrawal and cravings. But it won t completely take away the urge to smoke. Even if you use NRT to help you stop smoking, quitting can still be hard. Combining NRT with other strategies can improve your chances of quitting and staying quit. To give yourself the best chance for success, explore other quit methods you can combine with medication. Also think about: Developing a quit plan. Using quit programs such as SmokefreeTXT or calling a quitline. Using the QuitDasdak jamie for tips and inspiration to help you be smokefree. Prepare, Reduce creavings and Triggers, Reduce stress, Get Active, Eat Healthy Gum, Patches, Inhaler, lozenges, nasal spray or medications like Wellbutrin, Chantix Remind yourself of the rewards of quitting to help yourself stay on track: 20 minutes: heart rate, blood pressure drop 12 hours: carbon monoxide in blood stream drops to normal 2 weeks-3 months: circulation, lung function improve; heart attack risk begins to drop 1-9 months: cough less, breathe easier 1 year: risk of coronary heart disease cut in half 2-5 years: risk of cancer of mouth, throat, esophagus, bladder cut in half; stroke risk is reduced to that of a nonsmoker 10 years: half as likely to from lung cancer; risk of kidney or pancreatic cancer decreases 15 years: risk of coronary heart disease same as non-smoker s risk EXTRA MONEY Encounters Date Type Department Care Team Description 08/21/2025 12:39 PM CDT - 08/21/2025 11:59 PM CDT Hospital Encounter [facility] [address] [place] [address] Johnny Meza MD Complex regional pain syndrome type 1 of both lower extremities (Primary Dx); High risk medication use Discharge Disposition: Discharge to home or self care 08/15/[address] [facility] the [facility] Medicine [facility] [facility] [address] [place] [address] Salomon Wiggins MD [facility] Preprocedure 08/06/2025 Orders Only [facility] - [facility] [address] [facility] [address]th [address], [place] [address] Jesus Wright MD Gastroesophageal reflux disease, unspecified whether esophagitis present (Primary Dx) 07/18/2025 12:12 PM CDT - 07/18/2025 11:59 PM CDT Hospital Encounter [facility] [address] [place] [address] Lynda Arnold MD PhD Complex regional pain syndrome type 1 of both lower extremities (Primary Dx) Discharge Disposition: Discharge to home or self care 07/12/[address] [facility] the [facility] [address] [facility] [address] [place] [address] Lynda Arnold MD PhD [facility] Preprocedure 07/05/2025 10:08 AM CDT - 07/05/2025 11:59 PM CDT Hospital Encounter [facility] [address] [facility] [address] [place] [address] Deisi Bailey NP Complex regional pain syndrome type 1 of both lower extremities (Primary Dx); Nerve pain Discharge Disposition: Discharge to home or self care from Last 3 Months Immunizations Immunization Administration Dates Next Due Influenza, Quadrivalent, Spl it, Intramuscular 09/02/2023,08/21/2021,09/03/2020,08/09,08/19/2018 Influenza, Quadrivalent, Spl it, Preservative Free, Intramuscular 10/24/2018,08/26/2016,08/15/2015 Influenza, Unspecified 11/22/2017,2016(Deferred: Patient Refused),11/16/2016(Deferred: Patient Refused) Pfizer SARS-CoV-2 Monovalent Vaccination (12+ Yrs) PURPLE 03/18/2021,02/18/2021 Sars-CoV-2, Unspecified 03/18/2021,02/18/2021 Tdap 12/22/2019 Surgical History Surgery Date Site/Laterality Comments KNEE ARTHROSCOPY W/ DEBRIDEMENT 1991 - 11/14/1992 Bilateral KNEE ARTHROSCOPY W/ DEBRIDEMENT 1992 - 11/14/1993 Right CHOLECYSTECTOMY early 2009' TUBAL LIGATION OTHER SURGICAL HISTORY 1996 - 11/14/1997 : OTHER SURGICAL HISTORY 1998 - 11/14/1999 : NERVE BLOCK 2016 - 11/14/2017 X 3 ([id number]) HYSTERECTOMY and salpingectomy SPINAL CORD STIMULATOR IMPLANT 09/12/2018 COLONOSCOPY around TONSILLECTOMY AND ADENOIDECTOMY 1979 - 11/14/1980 HIATAL HERNIA REPAIR 11/26/2023 with Fundoplication LAPAROSCOPY REPAIR HIATAL HERNIA 11/25/2023 ESOPHAGOGASTRODUODENOSCOPY 12/29/2023 COLON BIOPSY 10/27/2023 ESOPHAGOGASTRODUODENOSCOPY 01/07/2023 w/ biopsy Medical History Medical History Date Comments Iron deficiency anemia Anemia ir on deficiency; Comments: ROMAN 01/08/2015 - Hx Other Medical hiatal hernia; Comments: ROMAN 01/08/2015 - Goiter Thyroid goiter; Comments: Alyson 01/08/2015 - Acute gastric ulcer Acute gastri c ulcer; Comments: Alyson 01/08/2015 - Disorder of thyroid Thyroid dise ase Hx Other Medical ; Outc ome: 34W0D week 5lb(s) 4 oz Male Hx Other Medical ; Outc ome: 36W0D week 6lb(s) 2 oz Female Anemia Anemia Vaginal bleeding Vaginal bleedin g Temporal arteritis (HCC) TA Gastroesophageal reflux disease GERD Hx Other Medical Menorrhagia and pelvic pain Smoking Migraine Hiatal hernia GERD (gastroesophageal reflux disease) Anxiety Depression PONV (postoperative nausea and vomiting) pt reports severe PONV relieved with scopalamine patch and IV antiemetics Peptic ulceration Bronchitis Neck pain Back pain Headache Migraine Chronic pain disorder Extremity pain Arrhythmia Ankle pain, left Leg pain Foot pain, left IBS (irritable bowel syndrome) Dysphagia Chronic bronchitis (HCC) Asthma Family History Medical History Relation Name Comments Allergy (severe) Daughter Toshia Other Daughter Toshia Bladder problem s; Coronary artery disease Father shu Alcon nary artery disease; Heart disease Father shu Heart disease; Hypertension Father shu Hypertension; Memory loss Father shu Allergy (severe) Mother Yani Anesthesia problems Mother Yani difficul ty waking up requiring having to stay overnight , no ICU stay Arthritis Mother Yani Asthma Mother Yani Breast cancer Mother Yani Depression Mother Yani Diabetes Mother Yani Diabetes mellit us; Diabetes type II Mother Yani Diabetes me llitus type 2; Hyperlipidemia Mother Yani High Choleste rol; Hypertension Mother Yani Hypertension; Lupus Mother Yani Other Mother Yani Alive and well; Rheum arthritis Mother Yani Stroke Mother Yani Stroke; Thyroid disease Mother Yani Thyroid dise ase; /Thyroid disorder; Breast cancer Mother's Sister 1 Breast cancer Mother's Sister 2 Keshia Celiac disease Mother's Sister 2 Keshia Hypertension Other 1 Family history of Hypertension; Asthma Other 2 Family history of Asthma; Other Other 3 Family history of stomach, bowel, or gallbladder problems; Other Other 4 Family history of Breast problems; Alcohol abuse Paternal Grandfather shu Heart attack Paternal Grandfather shu Hypertension Sister 1 Keshia Other Sister 3 Alive and well; Thyroid disease Sister 4 Thyroid diso rder; Developmental delay Son 1 Adams Learning disabilities Son 1 Adams Mental illness Son 2 Adams-son Robert Hyperthermia Neg Hx Pseudochol deficiency Neg Hx Relation Name Status Comments Daughter Toshia Father shu Mother Yani Alive Mother's Sister 1 Mother's Sister 2 Keshia Other 1 Other 2 Other 3 Other 4 Paternal Grandfather shu Sister 1 Keshia Alive Sister 2 Alive Sister 3 Sister 4 Son 1 Adams Alive Son 2 Adams-son Alive Social History Tobacco Use Types Packs/Day Years Used Date Smoking Tobacco: Every Day Cigarettes 0.5 28.8 Started: 1992; Last attempted to quit: 2020 Passive Smoke Exposure: Current Smokeless Tobacco: Never Tobacco Cessation:Ready to Q uit: Not Asked; Counseling Given: Not Answered Alcohol Use Standard Drinks/Week Comments Never 0 (1 standard drink = 0.6 oz [...] you have a drink containing alcohol? Never 08/21/2025 Q2: How many drinks containi ng alcohol do you have on a typical day when you are drinking? Patient does not drink Q3: How often do you have si x or more drinks on one occasion? Never 08/21/2025 Personal Safety Answer Date Recorded Have you ever been in or are you currently in a harmful physical or emotional relationship or is someone making you feel afraid or unsafe? Denies 03/15/2025 Comments No Sex and Gender Information Value Date Recorded Sex Assigned at Not on file Legal Sex Female 7:05 PM GRAIN MANAGER Gender Identity Female 09/22/2021 9:22 AM GRAIN MANAGER Sexual Orientation Straight 09/22/2021 9: 22 AM GRAIN MANAGER Obstetrics History Last Filed Vital Signs Vital Sign Reading Time Taken Comments Blood Pressure 143/108 08/21/2025 3:01 PM CDT Pulse 74 08/21/2025 3:01 PM CDT Temperature 36.6 C (97.8 F) 07/18/2025 12:37 PM CDT Respiratory Rate 18 08/21/2025 3:01 PM CDT Oxygen Saturation 98% 08/21/2025 3:01 PM CDT Inhaled Oxygen Concentration - - Weight 64.4 kg (142 lb) 08/21/2025 12:40 PM CDT Height 170.2 cm (5' 7) 08/21/2025 12:40 PM CDT Body Mass Index 22.24 08/21/2025 12:40 PM CDT Plan of Treatment Health Maintenance Due Date Last Done Comments Pneumococcal vaccine <65 (1 of 2 - PCV) 1993 Regular Well Visit/Exam 18-64 10/24/2019 10/24/2018 Depression Screening 12/27/2019 12/27/2018, 12/27/2018, 10/24/2018, Additional history exists Breast Cancer Screening-Mammogram 05/15/2020 05/15/2019, 05/15/2019, 03/29/2018 Zoster Vaccine (1 of 2) 2024 Covid-19 Vaccine (2024-2 6 season) 2025 03/18/2021, 03/18/2021, 02/18/2021, Additional history exists Influenza Vaccine (#1) 2025 3, 08/21/2021, 09/03/2020, Additional history exists DTaP/Tdap/Td Vaccine (2 - Td or Tdap) 12/22/2029 12/22/2019 Colon Cancer Screening-Colonoscopy 10/27/2033 10/27/2023 Cervical Cancer Screening Discontinued 01/07/2015 Hepatitis B Screening Completed 07/28/2016 Hepatitis C Screening Completed 07/28/2016, 015 Goals Goal Patient Goal Type Associated Problems [...] lifestyle strategies and compensatory methods as needed Medical Devices Implanted Type Area Cardiothoracic Physiotherapist Device Identifier Shelf Expiration Date Model / Serial / Lot [employer] Jose Ct-4108 Precision Spectra 213cm 2x8 Splitter Extension Cable - [id number] - [id number] Implanted:Qty: 1 on 09/12/2018 by Lance Delgado MD at [facility] Cable N/A: Epidural Space [place] [employer] Jose 06/11/2020 SC-4108 / [id number] / [id number] [place] [employer] Jose Sc-2218-50 Precision 50cm Linear Straight Tip Preloaded Enhanced Stylet - [id number] - [id number] Implanted:Qty: 1 on 09/12/2018 by Lance Delgado MD at [facility] Lead N/A: Epidural Space [employer] Jose 08/22/2020 SC-2218 -50 / [id number] / [id number] [employer] Neuro- Kit Generator Neurostimulator Pain Management Spine 16 Electro[address] Wavewriter Alpha Ct-1216 - [id number] - [id number] Implanted:Qty: 1 on 03/15/2025 by Salomon Wiggins MD at [facility] Neurostimulato r Right: Spine Lumbar [place] [employer] Neuro- [id number] 01/09/2027 LA-1216 / [id number] / [id number] [place] [employer] Jose Ct-2218-50 Precision 50cm Linear Straight Tip Preloaded Enhanced Stylet - [id number] - [id number] Implanted:Qty: 1 on 09/12/2018 by Lance Delgado MD at [facility] Other - see comments [employer] Jose 08/22/2020 SC-2218 -50 / [id number] / [id number] [place] [employer] Sc-4318 Clik X [place] Lead Spinal Cord Stimulation Systems - [id number] - [id number] Implanted:Qty: 1 on 09/12/2018 by Lance Delgado MD at [facility] Other - see comments N/A: Epidural Space [place] [employer] 10/12/2019 LA-4318 / [id number] / [id number] [employer] Spinal Implants [id number] Hallmark 4.1mm 16mm Primary Constrain Color Coded Spine Cervical - [id number] - [id number] Implanted:Qty: 1 on 09/12/2018 by Lance Delgado MD at [facility] Other - see comments N/A: Epidural Space [employer] Spinal Implants 07/18/2020 [id number] / [id number] / [id number] [place] [employer] Jose Sc-4116 Precision Spectra 213cm 1x16 Splitter Extension Cable - [id number] Implanted:Qty: 1 on 06/28/2018 by Lance Delgado MD at [facility] [employer] Jose SC-4116 / / [place] [employer] Jose Sc-4116 Precision Spectra 213cm 1x16 Splitter Extension Cable - [id number] Implanted:Qty: 1 on 06/28/2018 by Lance Delgado MD at [facility] [employer] Jose SC-4116 / / [place] [employer] Jose Sc-6500-03 Neuromuscular Trial Kit Stimulator - [id number] Implanted:Qty: 1 on 06/28/2018 by Lance Delgado MD at [facility] [employer] Jose SC-6500 -03 / / [place] [employer] Neuro- Sc-2316-50e Precision Infinion 50cm 1x16 Splitter Trial Lead Kit - [id number] Implanted:Qty: 1 on 06/28/2018 by Lance Delgado MD at [facility] [employer] Neuro- SC-2316 -50E / / [place] [employer] Neuro- Sc-2316-50e Precision Infinion 50cm 1x16 Splitter Trial Lead Kit - [id number] Implanted:Qty: 1 on 06/28/2018 by Lance Delgado MD at [facility] [employer]- LA-2316 -50E / / Procedures Procedure Name Priority Date/Time Associated Diagnosis Comments COLONOSCOPY 10/27/2023 8:20 AM GRAIN MANAGER SCREENING MAMMOGRAM BILATERAL W JUNIOR Schedule Routine, Read Routine (OP Routine) 03/29/2018 10:31 AM CDT Breast cancer screening SERUM HEPATITIS C AB Routine 07/28/2016 3:52 AM CDT GENITAL FLUID PAP SMEAR, THIN PREP AND HPV Routine 01/07/2015 6:00 PM GRAIN MANAGER from Last 3 Months or Most Recently Relevant to Health Maintenance Results * COLONOSCOPY (10/27/2023 8:20 AM GRAIN MANAGER) Anatomical Region Laterality Modality Other Narrative Procedure Note Rosalie Samaniego MD - 10/27/2023 8:20 AM CST [facility] Patient Name: Yonathan Sigala Procedure Date: 10/27/2023 8:20 AM Date of : 1975 Admit Type: Outpatient Age: 47 Gender: Female Attending MD: Rosalie Samaniego M.D. [facility] 1 Note Status: Finalized Patient Profile: This is a 47 year old female. Patient has recurrent episodes of bright red bleeding per rectum. She has irregular bowel movements with diarrheaconstipation. Colonoscopy for evaluation. No family history ofcolon cancer per Procedure: Colonoscopy Indications: Rectal bleeding, Change in bowel habits Referring MD: Debra Mclain M.D. Providers: Rosalie Samaniego M.D. Impression: - The entire examined colon is normal. Biopsied. - Internal hemorrhoids. Treated with thermaltherapy. Recommendation: - Repeat colonoscopy in 10 years for screening purposes. - Continue present medications. Medicines: Monitored Anesthesia Care Complications: No immediate complications. Estimated Blood Loss: Estimated blood loss: none. Procedure: Pre-Anesthesia Assessment: - Prior to the procedure, a History and Physicalwas performed, and patient medications and allergieswere reviewed. The patient's tolerance of previous anesthesia was also reviewed. The risks andbenefits of the procedure and the sedation options and risks were discussed with the patient. All questions were answered, and informed consent was obtained. Prior Anticoagulants: The patient has taken noanticoagulant or antiplatelet agents. ASA Grade Assessment: Per anesthesia note and evaluation. After reviewing the risks and benefits, the patient was deemed in satisfactory condition to undergo the procedure. The benefits, risks and alternatives of theprocedure and sedation were discussed and informed consentwas obtained. All questions were answered. Please referto the signed informed consent document in the medical record. The bowel preparation used was Miralax and bisacodyl tablets via split dose instruction. The scope was passed under direct vision. The Pediatric Colonoscope PCF-H190L [id number] was introducedthrough the anus and advanced to the the cecum, identifiedby appendiceal orifice and ileocecal valve. Thequality of the bowel preparation was excellent. Bowel prepwas administered using a split dose. Findings: The perianal and digital rectal examinations were normal. The cecum appeared normal. The colon (entire examined portion) appeared normal. No polyps and no mass lesions noted. Random biopsies were taken with a cold forcepsfor histology. Internal hemorrhoids were found during retroflexion. The hemorrhoids were medium-sized and congested. Coagulation to prevent futurebleeding of internal hemorrhoids using IRC (Infrared Coagulation) wassuccessful. Electronically signed by Ahmad Karadaghy, M.D. Rosalie Samaniego M.D. 10/27/2023 10:14:24 AM Number of Addenda: 0 Note Initiated On: 10/27/2023 8:20 AM Procedure Code(s): --- Professional --- 05369, 59, Colonoscopy, flexible; with biopsy, single or multiple 93368, Destruction of internal hemorrhoid(s) by thermal energy (eg, infrared coagulation, cautery, radiofrequency) Diagnosis Code(s): --- Professional --- K64.8, Other hemorrhoids K62.5, Hemorrhage of anus and rectum R19.4, Change in bowel habit CPT copyright 2020 [employer]. All rights reserved. The codes documented in this report are preliminary and upon waiver analyst reviewmay be revised to meet current compliance requirements. Recognized by the [employer] for promoting quality in endoscopy Rosalie Samaniego MD ENDOSCOPY PROCEDURES Final Result * SCREENING MAMMOGRAM BILATERAL W JUNIOR (03/29/2018 10:31 AM CDT) Anatomical Region Laterality Modality Breast Bilateral Mammography Addenda Addendum by Joseluis Wiggins MD on 04/05/2018 11:52 PM CDT ADDENDUM #2 Comparison to previous mammogram at [place] on 01/15/2015 demonstrates a similar pattern of heterogeneously dense parenchyma without interval changes suspicious for malignancy. As before, fibroglandular density is asymmetrically greater in the upper-outer quadrant of the left breast, although not as pronounced as previously. No interval changes suspicious for malignancy are seen. Recommend rescreening in one year. BI-RADS Category 2--benign. Electronically signed by: Joseluis Wiggins Jr., M.D. ADDENDUM #1 A right exaggerated lateral craniocaudal view was also obtained. Electronically signed by: Joseluis Wiggins Jr., M.D. ORIGINAL REPORT - ADDENDUM ABOVE SCREENING MAMMOGRAM BILATERAL W JUNIOR HISTORY: Encounter for screening mammogram for malignant neoplasm of breast. Family history of breast cancer (mother and 2 maternal aunts). TECHNIQUE: 2 views of each breast were obtained with bilateral breast tomosynthesis. COMPARISON: None available. Previous mammogram at [place]. FINDINGS: The breasts are heterogeneously dense. Fibroglandular density in the upper-outer quadrant of the left breast is little greater than on the right. No dominant mass, skin thickening, nipple retraction or suspicious cluster of microcalcifications is seen. Digital technology was employed plus computer aided detection software (R2) was utilized in interpretation of these images. This facility utilizes a reminder system to notify patient's of yearly mammograms. IMPRESSION: 1. NO FINDINGS SUSPICIOUS FOR MALIGNANCY. 2. IF PRIOR MAMMOGRAM FROM [facility] IS OBTAINED FOR COMPARISON, AN ADDENDUM REPORT WILL FOLLOW. 3. ANNUAL FOLLOW-UP RECOMMENDED. BI-RADS 2--benign ADDENDUM #1 A right exaggerated lateral craniocaudal view was also obtained. Electronically signed by: Joseluis Wiggins Jr., M.D. ORIGINAL REPORT - ADDENDUM ABOVE SCREENING MAMMOGRAM BILATERAL W JUNIOR HISTORY: Encounter for screening mammogram for malignant neoplasm of breast. Family history of breast cancer (mother and 2 maternal aunts). TECHNIQUE: 2 views of each breast were obtained with bilateral breast tomosynthesis. COMPARISON: None available. Previous mammogram at [place]. FINDINGS: The breasts are heterogeneously dense. Fibroglandular density in the upper-outer quadrant of the left breast is little greater than on the right. No dominant mass, skin thickening, nipple retraction or suspicious cluster of microcalcifications is seen. Digital technology was employed plus computer aided detection software (R2) was utilized in interpretation of these images. This facility utilizes a reminder system to notify patient's of yearly mammograms. IMPRESSION: 1. NO FINDINGS SUSPICIOUS FOR MALIGNANCY. 2. IF PRIOR MAMMOGRAM FROM [facility] IS OBTAINED FOR COMPARISON, AN ADDENDUM REPORT WILL FOLLOW. 3. ANNUAL FOLLOW-UP RECOMMENDED. BI-RADS 2--benign Electronically signed by: Joseluis Wiggins Jr., M.D. Impressions 03/29/2018 10:41 AM CDT 1. NO FINDINGS SUSPICIOUS FOR MALIGNANCY. 2. IF PRIOR MAMMOGRAM FROM [facility] IS OBTAINED FOR COMPARISON, AN ADDENDUM REPORT WILL FOLLOW. 3. ANNUAL FOLLOW-UP RECOMMENDED. BI-RADS 2--benign Electronically signed by: Joseluis Wiggins Jr., M.D. Narrative 03/29/2018 10:41 AM CDT SCREENING MAMMOGRAM BILATERAL W JUNIOR HISTORY: Encounter for screening mammogram for malignant neoplasm of breast. Family history of breast cancer (mother and 2 maternal aunts). TECHNIQUE: 2 views of each breast were obtained with bilateral breast tomosynthesis. COMPARISON: None available. Previous mammogram at [place]. FINDINGS: The breasts are heterogeneously dense. Fibroglandular density in the upper-outer quadrant of the left breast is little greater than on the right. No dominant mass, skin thickening, nipple retraction or suspicious cluster of microcalcifications is seen. Digital technology was employed plus computer aided detection software (R2) was utilized in interpretation of these images. This facility utilizes a reminder system to notify patient's of yearly mammograms. Shannon Beaver NP IMG MAMMO PROCEDURES Edit ed Result - Final * Serum Hepatitis C ab (07/28/2016 3:52 AM CDT) HCV ab Negative NEG CDR HISTOR ICAL RESULTS Serum 07/28/2016 3:52 AM CDT Narrative CDR HISTORICAL RESULTS - 07/28/2016 7:57 AM CDT Interpretive Data Positive results should be confirmed by a molecular method. If positive, a second separately collected sample should be submitted for Hepatitis C Virus (HCV) RNA Detection and Quantitation by Real-Time Reverse Vat Tender-PCR (RT-PCR). Current interpretive data was last revised on 2016. us Jesse Merino MD LAB BLOOD ORDERABLES Final Resu lt CDR HISTORICAL RESULTS * Genital fluid pap smear, thin prep and HPV (01/07/2015 6:00 PM GRAIN MANAGER) Clinical information SEE NOTE HISTORICAL RESULTS Comment:Information not prov ided LMP SEE NOTE HISTORICAL RESULTS Comment:[id number] Previous Pap SEE NOTE HISTORI YOSELIN RESULTS Comment:INFORMATION NOT PROV IDED Previous biopsy SEE NOTE HIST ORICAL RESULTS Comment:INFORMATION NOT PROV IDED Referral specimen source SEE NOTE HISTORICAL RESULTS Comment:Cervix, Endocervix Statement of adequacy SEE NOTE HISTORICAL RESULTS Comment: Satisfactory for evaluation. Endocervical/transformation zone component present. Partially obscuring inflammation Referral specimen, interp SEE NOTE HISTORICAL RESULTS Comment:Negative for intraep ithelial lesion or malignancy. Variable comment SEE NOTE HIS TORICAL RESULTS Comment: This case could not be evaluated with computer assisted technology. The slide was manually screened according to routine procedures. Human papillomavirus RNA, High Risk E6/E7 Not Detected Not Detected HISTORICAL RESULTS Comment: This test was performed using the APTIMA HPV Assay ([employer] This assay detects E6/E7 viral messenger RNA (mRNA) from 14 high-risk HPV types (16,18,31,33,35,39,45,51,52,56,58,59,66,68). Genital 01/07/2015 6:00 PM GRAIN MANAGER Narrative HISTORICAL RESULTS - 01/15/2015 8:00 AM GRAIN MANAGER Test performed at [address] [id number] Director: YESSY SOTELO MD us Historical Provider LAB CYTOLOGY ORDERABLES F inal Result HISTORICAL RESULTS from Last 3 Months or Most Recently Relevant to Health Maintenance Insurance [facility] Member Subscriber Plan / Payer (Ef fective 2021-Present) Name:Yonathan Sigala Relation to Subscriber:Self Name:Yonathan Sigala Payer ID:[id number] (NAIC) Group ID:Not on file Type:MEDICAID RISK OTHER Address: ATTN: CLAIMS DEPT [address] [facility] [place] [id number] [facility] [place] WORKERS COMPENSATION GENERIC COMPENSATION WORKERS COMPENSATION GENERIC COMPENSATION Advance Directives For more information, please contact: [phone] * Full Code (Latest Code Status on File) Date Activated Date Inactivated Comments 12/29/2023 9:13 AM 12/29/2023 2:47 PM * Full Code Date Activated Date Inactivated Comments 11/25/2023 8:01 PM 11/26/2023 5:57 PM * Full Code Date Activated Date Inactivated Comments 10/27/2023 8:02 AM 10/27/2023 2:49 PM * Full Code Date Activated Date Inactivated Comments 10/27/2023 8:01 AM 10/27/2023 8:02 AM * Full Code Date Activated Date Inactivated Comments 01/06/2023 1:02 PM 01/06/2023 8:19 PM Care Teams Casualty Claims Supervisor Relationship Specialty Start Date End Date Shira Block NP [address] [place] [address] PCP - General Nurse Practitioner 02/02/25 Hamzah Batres MD [address] [place] [phone] Consulting Physician Gastroenterology 11/19/23
--- OUTSIDE RECORDS SUMMARY | 2025-09-13 14:09 | XMS_ITS | Encounter Summary ---
Author Organization [facility] Healthcare Address [address] [place] [address] Care Team Providers Care Slot Operations Director Name Role Phone Debra Mclain MD Primary Care Provider [phone] Hamzah Batres MD Unavailable [phone] Shira Block NP Primary Care Provider [phone] Encounter Details Date Type Department Care Team (Late st Contact Info) Description 08/24/2022 Telephone [facility] [address] [place] [address] Victorina Calderon, RT Social History Tobacco Use Types Packs/Day Years Used Date Smoking Tobacco: Former Cigarettes 0.5 28 1 2020 Smokeless Tobacco: Never Alcohol Use Standard Drinks/Week Comments No 0 (1 standard drink = 0.6 oz pur e alcohol) AUDIT-C Answer Date Recorded Q1: How often do you have a drink containing alc ohol? Never 01/21/2021 Average Number of Drinks Not on file 021 Frequency of Binge Drinking Not on file 07/2021 PHQ-2 Answer Date Recorded PHQ-2 Score 4 07/07/2019 Comments No Sex and Gender Information Value Date Recorded Sex Assigned at Not on file Legal Sex Female 7:05 PM MANAGER CRITICAL CARE Gender Identity Female 09/22/2021 9:22 AM MANAGER CRITICAL CARE Sexual Orientation Straight 09/22/2021 9: 22 AM MANAGER CRITICAL CARE documented as of this encounter Plan of [...] on filedocumented in this encounter Care Teams Slot Operations Director Relationship Specialty Start Date End Date Debra Mclain MD [address] [place] [address] PCP - General 03/16/19 02/01/25 Shira Block NP [address] [place] [address] PCP - General Nurse Practitioner 02/02/25 Hamzah Batres MD [address] [place] [address] Consulting Physician Gastroenterology 11/19/23 documented as of this encounter
== END 2025-09-13 13:35 | disposition home or self-care (01) ==
LOC: ANHFOHIMG 13:38
PROVIDERS: PCP Nurse Practitioner Family; Visit Provider Nurse Practitioner Family
DX: Z12.31 Encounter for screening mammogram for malignant neoplasm of breast (principal)
CPT/HCPCS: 77063; 77067